=== PATIENT | female | born 1955 | race Caucasian/White ===

== ENCOUNTER → 2018-03-04 09:10 | Outpatient (CLI) | payer MEDICAID, SELFPAY ==
[2018-03-04 10:22] LABS: Absolute Lymphocyte Count 1.88 X10^3/ul (0.83-4.51); Absolute Neutrophil Count 6.1 X10^3/uL (2.0-7.7); Basophil# 0.09 X10^3/uL; Eosinophil# 0.26 X10^3/uL; Eosinophils% 2.8 % (0-5); Hematocrit 46.5 % (37-47); Hemoglobin 15.5 g/dl (12.0-15.0); Lymphocyte # 1.88 X10^3/ul (4.0); Lymphocyte % 20.4 % (19-41); Mean Corp Hgb Conc 33.3 g/gl (32-36); Mean Corpuscular Hgb 31.2 pg (27.0-32.0); Mean Corpuscular Volume 93.6 fL (81-99); Mean Platelet Vol. 10.4 fl (6.2-12.0); Monocyte# 0.85 X10^3/uL; Monocyte% 9.2 % (0-10); Neutrophil % 66.4 % (47-70); Platelet Count 292 K/mm3 (150-450); RBC Distribution Width CV 13.2 % (11.6-14.6); RBC Distribution Width SD 44.1 fl (35.1-43.9); Red Blood Count 4.97 M/mm3 (4.2-5.4); White Blood Count 9.2 K/mm3 (4.4-11.0)
[2018-03-04 10:30] LABS: POSITIVE COUNT NO; POSITIVE DIFFERENTIAL NO; POSITIVE MORPHOLOGY NO
[2018-03-04 10:39] LABS: Anion Gap 8 (5-15); BUN 12 mg/dL (7-18); BUN/Creat Ratio 18.3 RATIO (10-20); Calcium,Total 8.1 mg/dL (8.5-10.1); Chloride 107 mmol/L (98-107); Cholesterol 193 mg/dL (200); Creatinine, Serum 0.65 mg/dL (0.55-1.02); EST Glomerular Filtration Rate 97 mL/min (>60); Est Glom Filt Rate - Afr Amer 117 mL/min (>60); Glucose 108 mg/dL (74-106); High Density Lipoprotein 42 mg/dL; Potassium 3.7 mmol/L (3.5-5.1); Sodium Level 142 mmol/L (136-145); Triglycerides 132 mg/dL; Very Low Density Lipoprotein 26 mg/dL (5-40)
== END ==
PROVIDERS: Family Provider Internal Medicine; PCP Internal Medicine; Referring Provider Internal Medicine; Visit Provider Internal Medicine
DX: E78.5 Hyperlipidemia, unspecified (principal); J44.9 Chronic obstructive pulmonary disease, unspecified
CPT/HCPCS: 36415; 80048; 80061; 85025

== ENCOUNTER → 2018-03-16 07:21 | Outpatient (CLI) | payer MEDICAID, SELFPAY ==
--- NOTE | 2018-03-17 08:35 | PFT ---
INTRODUCTION: The patient is a 62-year-old female that presents for pulmonary function testing secondary to a diagnosis of COPD. Respiratory therapy reports good patient effort. Bronchodilators were used during testing. INTERPRETATION: Forced expiration spirometry demonstrates the presence of a moderately severe large airways obstructive ventilatory defect. The patient did have a significant bronchodilator response, based upon change noted in FVC. Spirograms are of good quality do not plateau indicating slow emptying of the lungs. Body plethysmography was performed and reveals an elevated RV to 155% of predicted, indicative of underlying air trapping. Diffusing capacity by single breath CO is mildly reduced at 60% of predicted. IMPRESSION: These pulmonary function studies demonstrate the presence of a partially reversible moderately severe large airways obstructive ventilatory defect with associated air trapping and reduction in diffusing capacity.
== END ==
PROVIDERS: Family Provider Internal Medicine; PCP Internal Medicine; Referring Provider Internal Medicine; Visit Provider Internal Medicine
DX: J44.9 Chronic obstructive pulmonary disease, unspecified (principal)
CPT/HCPCS: 94060; 94726; 94729

== ENCOUNTER → 2019-02-02 08:37 | Outpatient (CLI) | payer MEDICAID, SELFPAY ==
[2018-08-11 14:59] VITALS: BMI 27.6
[2019-02-02 10:42] LABS: Absolute Lymphocyte Count 1.56 X10^3/uL (0.83-4.51); Absolute Neutrophil Count 7.5 X10^3/uL (2.0-7.7); Basophil# 0.09 X10^3/uL; Basophil% 0.8 % (0-1); Eosinophil# 0.38 X10^3/uL; Eosinophils% 3.4 % (0-5); Hematocrit 47.2 % (37-47); Hemoglobin 15.4 g/dL (12.0-15.0); Lymphocyte # 1.56 X10^3/ul (4.0); Lymphocyte % 14.1 % (19-41); Mean Corp Hgb Conc 32.6 g/dL (32-36); Mean Corpuscular Hgb 30.5 pg (27.0-32.0); Mean Corpuscular Volume 93.5 fL (81-99); Mean Platelet Vol. 9.9 fl (6.2-12.0); Monocyte% 13.6 % (0-10); NRBC Flagged by Analyzer 0 % (0-5); Neutrophil # 7.49 X10^3/uL (2.7-7.7); Neutrophil % 67.8 % (47-70); Platelet Count 268 K/mm3 (150-450); RBC Distribution Width CV 13.6 % (11.6-14.6); RBC Distribution Width SD 46.6 fl (35.1-43.9); Red Blood Count 5.05 M/mm3 (4.2-5.4); White Blood Count 11.1 K/mm3 (4.4-11.0)
[2019-02-02 11:15] LABS: AST(SGOT) 20 U/L (15-37); Alanine Aminotransfer ALT/SGPT 20 U/L (13-56); Albumin, Serum 3.7 g/dL (3.2-5.0); Alkaline Phosphatase 73 U/L (45-117); Anion Gap 5 (5-15); BUN 7 mg/dL (7-18); BUN/Creat Ratio 9.5 RATIO (10-20); Calcium,Total 8.4 mg/dL (8.5-10.1); Chloride 108 mmol/L (98-107); Cholesterol 188 mg/dL (200); Creatinine, Serum 0.74 mg/dL (0.55-1.02); EST Glomerular Filtration Rate 84 mL/min (>60); Est Glom Filt Rate - Afr Amer 102 mL/min (>60); Globulin 3.7 g/dL (2.2-4.2); Glucose 103 mg/dL (74-106); High Density Lipoprotein 39 mg/dL; Potassium 3.8 mmol/L (3.5-5.1); Protein, Total 7.4 g/dL (6.4-8.2); Sodium Level 140 mmol/L (136-145); Triglycerides 158 mg/dL; Very Low Density Lipoprotein 32 mg/dL (5-40)
== END ==
PROVIDERS: Family Provider Internal Medicine; PCP Internal Medicine; Referring Provider Internal Medicine; Visit Provider Internal Medicine
DX: I10 Essential (primary) hypertension (principal); K21.9 Gastro-esophageal reflux disease without esophagitis
CPT/HCPCS: 36415; 80053; 80061; 85025

== ENCOUNTER → 2020-08-30 14:16 | Outpatient (CLI) | payer MEDICARE, SELFPAY ==
[2020-08-30 14:04] VITALS: BMI 27.3
[2020-08-30 15:09] LABS: Absolute Lymphocyte Count 2.48 X10^3/uL (0.83-4.51); Absolute Neutrophil Count 8.2 X10^3/uL (2.0-7.7); Basophil# 0.11 X10^3/uL; Basophil% 0.9 % (0-1); Eosinophil# 0.38 X10^3/uL; Eosinophils% 2.9 % (0-5); Hematocrit 45.4 % (37-47); Hemoglobin 14.5 g/dL (12.0-15.0); Lymphocyte # 2.48 X10^3/ul (0.83-4.51); Lymphocyte % 19.2 % (19-41); Mean Corp Hgb Conc 31.9 g/dL (32-36); Mean Corpuscular Hgb 30.3 pg (27.0-32.0); Mean Corpuscular Volume 94.8 fL (81-99); Mean Platelet Vol. 9.8 fl (6.2-12.0); Monocyte# 1.66 X10^3/uL; Monocyte% 12.9 % (0-10); NRBC Flagged by Analyzer 0 % (0-5); Neutrophil # 8.21 X10^3/uL (2.7-7.7); Neutrophil % 63.6 % (47-70); POSITIVE DIFFERENTIAL YES; Platelet Count 345 K/mm3 (150-450); RBC Distribution Width CV 13.2 % (11.6-14.6); RBC Distribution Width SD 46.4 fl (35.1-43.9); Red Blood Count 4.79 M/mm3 (4.2-5.4); White Blood Count 12.9 K/mm3 (4.4-11.0)
[2020-08-30 15:10] LABS: Differential Indicated SCAN CRITERIA MET
[2020-08-30 15:28] LABS: AST(SGOT) 13 U/L (15-37); Alanine Aminotransfer ALT/SGPT 18 U/L (13-56); Albumin, Serum 3.8 g/dL (3.2-5.0); Alkaline Phosphatase 71 U/L (45-117); Anion Gap 7 (5-15); BUN 15 mg/dL (7-18); BUN/Creat Ratio 21.8 RATIO (10-20); Calcium,Total 8.2 mg/dL (8.5-10.1); Chloride 106 mmol/L (98-107); Cholesterol 204 mg/dL (200); Creatinine, Serum 0.69 mg/dL (0.55-1.02); EST Glomerular Filtration Rate 91 mL/min (>60); Est Glom Filt Rate - Afr Amer 110 mL/min (>60); Globulin 3.7 g/dL (2.2-4.2); Glucose 100 mg/dL (74-106); High Density Lipoprotein 42 mg/dL; Potassium 4.1 mmol/L (3.5-5.1); Protein, Total 7.5 g/dL (6.4-8.2); Sodium Level 141 mmol/L (136-145); Triglycerides 154 mg/dL; Very Low Density Lipoprotein 31 mg/dL (5-40)
[2020-08-30 15:41] LABS: Differential Comment SCANNED
[2020-09-02 13:23] LABS: Pathologist Review Reviewed
== END ==
PROVIDERS: PCP Internal Medicine; Referring Provider Internal Medicine; Visit Provider Internal Medicine
DX: I10 Essential (primary) hypertension (principal); J45.909 Unspecified asthma, uncomplicated
CPT/HCPCS: 36415; 80053; 80061; 85025

== ENCOUNTER 2021-02-27 17:31 | Observation (INO) | payer MEDICARE, SELFPAY ==
[2021-02-27] VITALS (14 sets, daily range): BP systolic 145–202; BP diastolic 70–106; PULSE 100–132; RESP 17–29; TEMP 36.6–37.1; O2SAT 85–98; BMI 30.2; BMI 29.6
--- NOTE | 2021-02-27 17:51 | EKG12_ITS ---
Test Reason : SOB Blood Pressure : / mmHG Vent. Rate : 101 BPM Atrial Rate : 101 BPM P-R Int : 148 ms QRS Dur : 082 ms QT Int : 344 ms P-R-T Axes : 069 -33 057 degrees QTc Int : 446 ms Sinus tachycardia Left axis deviation Septal infarct , age undetermined Abnormal ECG Confirmed by FARHEEN LAKE, IAM ([id number]), publications editor TAMIKO BELTRAN ([id number]) on 03/03/2021 10:22:16 A M Referred By: ALEKSANDER Confirmed By:JOE ZHONG MD
--- NOTE | 2021-02-27 17:53 | EDS_ITS ---
HPI History of Present Illness Chief Complaint: Shortness of Breath Informant: patient Narrative Narrative: Patient presents with dyspnea. Its really built up just over about the last 24 hours. She is wheezing a lot. She is her albuterol once or twice. It helps just for a short period of time but does not resolve it. She is coughing and bringing up occasional white or clear sputum. No hemoptysis. No chest pain. No leg pain or swelling. No fevers or myalgias. She is already had her Covid vaccine. She does have a history of COPD. She still smokes and was counseled to quit. Although the albuterol helped a little bit nothing really makes her symptoms worse. [facility] Medical History Arthritis Asthma COPD (chronic obstructive pulmonary disease) Depression History of wrist fracture Preventative health correction Medications ibuprofen 200 mg tablet 200 mg PO Q6H PRN 02/09/19 [History Last Taken Unknown] amlodipine 5 mg tablet 5 mg PO DAILY #90 tab 10/11/20 [Rx Last Taken Unknown] albuterol sulfate 90 mcg/actuation aerosol inhaler 2 puff INHALATION Q6H PRN #8.5 g 02/07/21 [Rx Last Taken Unknown] citalopram 40 mg tablet 40 mg PO QDAY #90 tab 02/07/21 [Rx Last Taken Unknown] Allergy/AdvReac Type Severity Reaction Status Date / Time No Known Allergies Allergy Verified 02/27/21 17:32 Family History Father COPD (chronic obstructive pulmonary disease) Mother COPD (chronic obstructive pulmonary disease) Heart disease Surgical History cyst removed off knee History of tonsillectomy spur removal in heel Social History Smoking Status: Current every day smoker tobacco type: cigarettes Tobacco: How many years used: 40 alcohol intake: never substance use type: does not use what type of physical activity do you participate in: none ROS ROS ED Constitutional Constitutional ED: Denies chills or fever(s) Eyes Eyes: Denies blurry vision ENT ENT ED: Denies rhinorrhea or sore throat Cardiovascular Cardiovascular: Denies chest pain, orthopnea or palpitations Respiratory/Chest Respiratory/Chest: Reports cough and dyspnea; Denies orthopnea or sputum Gastrointestinal Gastrointestinal: Denies abdominal pain, nausea or vomiting Genitourinary Genitourinary ED: Denies dysuria Musculoskeletal Musculoskeletal: Denies arthralgias or myalgias Integumentary Denies rash Neurologic Neurologic: Denies headache(s) Psychiatric Psychiatric: Denies depression Endocrine Endocrinology: Denies polydipsia or polyuria Hematologic/Lymphatic Hematologic/Lymphatic: Denies easy bleeding or easy bruising Allergic/Immunologic Allergic/Immunologic ED: Denies urticaria EXAM Physical Exam Const Vital Signs: 02/27/21 17:32 02/27/21 17:36 02/27/21 17:47 Temperature 97.9 F Temperature Source Temporal Pulse Rate 132 H 109 H Respiratory Rate 29 H 24 H Respiratory Effort Short of Breath Respiratory Depth Respiratory Pattern Tachypnea Blood Pressure 202/106 H Blood Pressure Mean 138 Pulse Ox 85 98 Oxygen Delivery Method Room Air Nasal Cannula Nasal Cannula Oxygen Flow Rate (L/min) 2 2 02/27/21 18:22 02/27/21 18:39 02/27/21 19:03 Temperature Temperature Source Pulse Rate 106 H 101 H 105 H Respiratory Rate 24 H 22 H 19 H Respiratory Effort Short of Breath Labored Accessory Muscle Use Respiratory Depth Shallow Respiratory Pattern Tachypnea Blood Pressure 195/92 H 172/90 H Blood Pressure Mean 126 117 Pulse Ox 97 93 94 Oxygen Delivery Method Nasal Cannula Nasal Cannula Room Air Oxygen Flow Rate (L/min) 1 2 02/27/21 20:00 02/27/21 20:05 Temperature Temperature Source Pulse Rate 101 H Respiratory Rate 20 H Respiratory Effort Respiratory Depth Respiratory Pattern Blood Pressure 179/89 H Blood Pressure Mean 119 Pulse Ox 86 93 Oxygen Delivery Method Room Air Nasal Cannula Oxygen Flow Rate (L/min) 3 Patient is having some increased work of breathing. But she is wide awake alert carrying on a good conversation. Positive well nourished and well developed General Appearance ED: well developed and NAD HEENT Reports moist mucous membranes atraumatic; Negative for tenderness Eyes General Eye ED: Negative for pale conjunctiva or scleral icterus Neck no meningeal signs and no JVD Resp No normal respiratory effort and No clear to auscultation bilaterally Resp Narrative: Mild increased respiratory effort. Poor air motion with diffuse expiratory wheezing. No rhonchi or rales. No pain with a deep breath. Effort and Inspection: Negative for pain with movement Auscultation: wheezes and diminished lung sounds; Negative for rales or rhonchi Cardio regular rhythm Rate: tachycardic GI non-tender Palpation: soft Back/Spine no CVA tenderness and normal to inspection Extremity normal to inspection General Extremety ED: Negative for edema or tenderness General Extremity: Negative for edema Neuro oriented x3 Sensorium / Orientation: alert Skin Rashes: no rashes MDM MDM MDM Narrative Medical decision making narrative: Patient's blood work showed nonspecific elevation of her white count. Hemoglobin is elevated possibly due to her chronic COPD and smoking. Electrolytes are unremarkable. Chest x-ray showed no acute process. Patient did sound better after treatment. Her wheezing was reduced but still present. Her oxygen saturations were about 94 to 95% on 2 L. My plan was to walk her. We turned off her oxygen for a few minutes. However she had 87% with a good waveform just sitting in bed with the oxygen off. She does not have oxygen at home. I am sure she will drop more with ambulation. For this reason we are going to admit her with her COPD exacerbation and respiratory failure due to hypoxia. Lab Data Attestation: I reviewed the patient's lab results. Labs: Laboratory Results - last 24 hr 02/27/21 02/27/21 17:35 17:35 WBC 13.8 H RBC 5.02 Hgb 15.3 H Hct 46.3 MCV 92.2 MCH 30.5 MCHC 33.0 RDW Std Deviation 45.9 H RDW Coeff of Bigg 13.5 Plt Count 341 MPV 9.5 Immature Gran % (Auto) 0.400 Neut % (Auto) 52.9 Lymph % (Auto) 28.5 [place] % (Auto) 12.9 H Eos % (Auto) 4.3 Baso % (Auto) 1.0 Absolute Neuts (auto) 7.3 Absolute Lymphs (auto) 3.93 Nucleated RBC % 0 Differential Comment Sodium 140 Potassium 3.6 Chloride 104 Carbon Dioxide 27.0 Anion Gap 9 BUN 14 Creatinine 0.70 Estim Creat Clear Calc 55.39 Est GFR (MDRD) Af Amer 107 Est GFR (MDRD) Non-Af 89 BUN/Creatinine Ratio 20.0 Glucose 109 H Calcium 8.6 Radiography Diagnostic Testing: Clinical Impression(s) from Imaging Studies Chest X-Ray 11/04/21 18:21 IMPRESSION: No acute radiographic abnormalities. Electronically Signed: Sonido Rivas MD at 18:59 EDT Tel , Service support , EKG Initial EKG: Comments: EKG done for dyspnea read by me shows sinus rhythm with tachycardic rate at 101. No ventricular ectopy. There is some baseline varia tion. However, no acute ST elevation or depression. MA interval, QRS duration and QTc are normal. Discharge Plan Triage Chief Complaint: Shortness of Breath ED Provider: Joe Snyder Dx/Rx/DC Orders Clinical Impression: COPD (chronic obstructive pulmonary disease), Acute respiratory failure with hypoxia Primary Care Provider: Kajal Ny Disposition Disposition: Acute Care Hospital [facility]
[2021-02-27] MEDS: MethylPREDNISolone 125 MG/2 ML Vial IV (18:01)
[2021-02-27 18:10] LABS: Absolute Lymphocyte Count 3.93 X10^3/uL (0.83-4.51); Absolute Neutrophil Count 7.3 X10^3/uL (2.0-7.7); Basophil# 0.14 X10^3/uL; Eosinophil# 0.59 X10^3/uL; Eosinophils% 4.3 % (0-5); Hematocrit 46.3 % (37-47); Hemoglobin 15.3 g/dL (12.0-15.0); Lymphocyte # 3.93 X10^3/ul (0.83-4.51); Lymphocyte % 28.5 % (19-41); Mean Corpuscular Hgb 30.5 pg (27.0-32.0); Mean Corpuscular Volume 92.2 fL (81-99); Mean Platelet Vol. 9.5 fl (6.2-12.0); Monocyte# 1.77 X10^3/uL; Monocyte% 12.9 % (0-10); NRBC Flagged by Analyzer 0 % (0-5); Neutrophil # 7.29 X10^3/uL (2.7-7.7); Neutrophil % 52.9 % (47-70); POSITIVE DIFFERENTIAL YES; Platelet Count 341 K/mm3 (150-450); RBC Distribution Width CV 13.5 % (11.6-14.6); RBC Distribution Width SD 45.9 fl (35.1-43.9); Red Blood Count 5.02 M/mm3 (4.2-5.4); White Blood Count 13.8 K/mm3 (4.4-11.0)
[2021-02-27 18:18] LABS: Differential Indicated SCAN CRITERIA MET
--- NOTE | 2021-02-27 18:21 | RAD_ITS ---
INDICATION: cough EXAMINATION/TECHNIQUE: X-RAY - XR Chest 1 View COMPARISON: 02/08/2013. FINDINGS: The lungs are clear. Tortuous and calcified thoracic aorta. The heart is not enlarged. No pleural effusion or pneumothorax. Degenerative changes of the thoracic spine and shoulders. RAD/Chest 1 View (Portable) IMPRESSION: No acute radiographic abnormalities. Electronically Signed: Sonido Rivas MD at 18:59 EDT Tel , Service support ,
[2021-02-27 18:22] LABS: Anion Gap 9 (5-15); BUN 14 mg/dL (7-18); Calcium,Total 8.6 mg/dL (8.5-10.1); Chloride 104 mmol/L (98-107); EST Glomerular Filtration Rate 89 mL/min (>60); Est Glom Filt Rate - Afr Amer 107 mL/min (>60); Estimated Creatinine Clearance 55.39 ml/min; Glucose 109 mg/dL (74-106); Potassium 3.6 mmol/L (3.5-5.1); Sodium Level 140 mmol/L (136-145)
[2021-02-27] MEDS: Ipratropium/Albuterol Sulfate 3 ML AMPUL.NEB INHALATION ×3 (18:22→23:41)
[2021-02-27] MEDS: Albuterol 2.5 MG/3 ML VIAL.NEB. INHALATION (18:22)
--- NOTE | 2021-02-27 20:39 | HP.PCM.HOS_ITS ---
HPI - General General Date of Admission: 02/27/21 Date of Service: 02/27/21 Chief Complaint: shortness of breath HPI Narrative GERI PACHECO, is a 65 F who presents shortness of breath. Began around 530 today when she went to the gas station and became acutely short of breath. Presented to the emergency room and had audible wheezing. Received bronchodilators as well as monitoring 5 mg of methylprednisolone. Currently is feeling better. Patient was ambulated and dropped to 87% on room air and when I went to the room in turn of the oxygen she down to 88% on room air. Patient is not on home oxygen. Patient is never felt short of breath like this before. Patient being admitted for acute exacerbation of COPD and hypoxia. [facility] Medical History Arthritis Asthma COPD (chronic obstructive pulmonary disease) Depression History of wrist fracture Preventative health [facility] Medications ibuprofen 200 mg tablet 200 mg PO Q6H PRN 02/09/19 [History Last Taken Unknown] amlodipine 5 mg tablet 5 mg PO DAILY #90 tab 10/11/20 [Rx Last Taken Unknown] albuterol sulfate 90 mcg/actuation aerosol inhaler 2 puff INHALATION Q6H PRN #8.5 g 02/07/21 [Rx Last Taken Unknown] citalopram 40 mg tablet 40 mg PO QDAY #90 tab 02/07/21 [Rx Last Taken Unknown] fluticasone propionate 44 mcg/actuation HFA aerosol inhaler 1 puff INHALATION BID #10.6 g 02/07/21 [Rx Last Taken Unknown] Allergy/AdvReac Type Severity Reaction Status Date / Time No Known Allergies Allergy Verified 02/27/21 17:32 Family History Father COPD (chronic obstructive pulmonary disease) Mother COPD (chronic obstructive pulmonary disease) Heart disease Surgical History cyst removed off knee History of tonsillectomy spur removal in heel Social History Smoking Status: Current every day smoker tobacco type: cigarettes Tobacco: How many years used: 40 alcohol intake: never substance use type: does not use what type of physical activity do you participate in: none ROS ROS Narrative All review of systems were negative except as mentioned above in the history of present illness and the other review of systems. Vital Signs Vital Signs Vital Signs: 02/27/21 17:32 02/27/21 17:36 02/27/21 17:47 Temperature 36.6 C Temperature Source Temporal Pulse Rate 132 H 109 H Respiratory Rate 29 H 24 H Respiratory Effort Short of Breath Respiratory Depth Respiratory Pattern Tachypnea Blood Pressure 202/106 H Blood Pressure Mean 138 Pulse Ox 85 98 Oxygen Delivery Method Room Air Nasal Cannula Nasal Cannula Oxygen Flow Rate (L/min) 2 2 02/27/21 18:22 02/27/21 18:39 02/27/21 19:03 Temperature Temperature Source Pulse Rate 106 H 101 H 105 H Respiratory Rate 24 H 22 H 19 H Respiratory Effort Short of Breath Labored Accessory Muscle Use Respiratory Depth Shallow Respiratory Pattern Tachypnea Blood Pressure 195/92 H 172/90 H Blood Pressure Mean 126 117 Pulse Ox 97 93 94 Oxygen Delivery Method Nasal Cannula Nasal Cannula Room Air Oxygen Flow Rate (L/min) 1 2 02/27/21 20:00 02/27/21 20:05 Temperature Temperature Source Pulse Rate 101 H Respiratory Rate 20 H Respiratory Effort Respiratory Depth Respiratory Pattern Blood Pressure 179/89 H Blood Pressure Mean 119 Pulse Ox 86 93 Oxygen Delivery Method Room Air Nasal Cannula Oxygen Flow Rate (L/min) 3 Weight Weight: 63.4 kg Body Mass Index (BMI) 30.2 Physical Exam Const alert General Appearance: cooperative HEENT normocephalic Resp Resp Narrative: Diminished breath sounds. Faint wheezing heard throughout. Cardio regular rate, regular rhythm, S1 normal heart sound and S2 normal heart sound GI normal to inspection, nondistended, normoactive bowel sounds, soft to palpation, non-tender and non-distended Extremity normal to inspection Results Lab / Micro Data Attestation: I reviewed the patient's lab results. Result Diagrams: 02/27/21 17:35 02/27/21 17:35 Labs: Laboratory Results - last 24 hr 02/27/21 17:35: WBC 13.8 H, RBC 5.02, Hgb 15.3 H, Hct 46.3, MCV 92.2, MCH 30.5, MCHC 33.0, RDW Std Deviation 45.9 H, RDW Coeff of Bigg 13.5, Plt Count 341, MPV 9.5, Immature Gran % (Auto) 0.400, Neut % (Auto) 52.9, Lymph % (Auto) 28.5, [place] % (Auto) 12.9 H, Eos % (Auto) 4.3, Baso % (Auto) 1.0, Absolute Neuts (auto) 7.3, Absolute Lymphs (auto) 3.93, Nucleated RBC % 0, Differential Comment 02/27/21 17:35: Sodium 140, Potassium 3.6, Chloride 104, Carbon Dioxide 27.0, Anion Gap 9, BUN 14, Creatinine 0.70, Estim Creat Clear Calc 55.39, Est GFR (MDRD) Af Amer 107, Est GFR (MDRD) Non-Af 89, BUN/Creatinine Ratio 20.0, Glucose 109 H, Calcium 8.6 EKG Initial EKG: Attestation: I personally reviewed and interpreted this EKG as follows: Prior EKG tracings: available for review EKG Rhythm Intrepretation: Sinus Tachycardia Radiology Impression Chest X-Ray 02/27/21 18:21 IMPRESSION: No acute radiographic abnormalities. Electronically Signed: Sonido Rivas MD at 18:59 EDT Tel , Service support , Assessment & Plan Assessment/Plan (1) COPD with acute exacerbation: (2) Hypertensive urgency: (3) Acute respiratory failure with hypoxia: PLAN: 1. Acute exacerbation of COPD * Patient peers very well at this time. * Already received bronchodilators as well as 125 milligrams of methylprednisolone * Will continue with 40 mg prednisone as well as bronchodilators here. * Anticipate uncomplicated hospitalization 2. Hypertensive urgency * May be related with her acute illness * Already on amlodipine 5 mg daily * We will add lisinopril 10 mg daily and give her her first dose of lisinopril tonight as well as give her a dose of amlodipine tonight. * May need further adjustments based on her overall blood pressure 3. Acute hypoxic respiratory failure * Suspected that this could certainly be chronic. Patient appears well with a pulse ox of 88% on room air. * Will check an ambulatory pulse ox on the fifth and if patient is 88% or less that she will need home oxygen. 4. VTE prophylaxis: Low risk given observation status. Not indicated. Charges/Coding Visit Charges OBSV E&M: 25955 Initial observation care L2
--- NOTE | 2021-02-27 21:33 | PCS.PANDOC ---
PANDEMIC DOCUMENTATION INITIATED: Date: 12/09/2020 Time: 190
[2021-02-27] MEDS: amLODIPine 5 MG Tablet PO (21:36)
[2021-02-27] MEDS: Lisinopril 10 MG Tablet PO (21:37)
[2021-02-28 05:20] VITALS: BP 143/79; PULSE 98; RESP 20; TEMP 36.3; O2SAT 95
[2021-02-28 05:49] VITALS: PULSE 102; RESP 20
[2021-02-28] MEDS: Ipratropium/Albuterol Sulfate 3 ML AMPUL.NEB INHALATION ×3 (05:49→15:46)
--- NOTE | 2021-02-28 07:09 | PCM.PN.HOSP ---
Subjective Subjective Patient is a 65-year-old lady admitted with progressive shortness of breath and wheezing as well as cough. An assessment of COPD with acute exacerbation made admitted to regular nursing floor for further management Objective Data Objective Data Vital Signs: Vital Signs Temp Pulse Resp BP Pulse Ox 97.3 F L 102 H 20 H 143/79 H 95 02/28/21 05:20 02/28/21 05:49 02/28/21 05:49 02/28/21 05:20 02/28/21 05:20 Oxygen Flow Rate (L/min) 3 Oxygen Delivery Method Nasal Cannula Weight: 62.142 kg Body Mass Index (BMI) 29.6 Intake & Output: Intake and Output for Last 24 Hours 02/26/21 02/27/21 02/28/21 23:59 23:59 23:59 Intake Total 50 / 50 Balance 50 / 50 Lab / Micro Data Result Diagrams: 02/27/21 17:35 02/27/21 17:35 Labs: Laboratory Results - last 24 hr 02/27/21 17:35: WBC 13.8 H, RBC 5.02, Hgb 15.3 H, Hct 46.3, MCV 92.2, MCH 30.5, MCHC 33.0, RDW Std Deviation 45.9 H, RDW Coeff of Bigg 13.5, Plt Count 341, MPV 9.5, Immature Gran % (Auto) 0.400, Neut % (Auto) 52.9, Lymph % (Auto) 28.5, [place] % (Auto) 12.9 H, Eos % (Auto) 4.3, Baso % (Auto) 1.0, Absolute Neuts (auto) 7.3, Absolute Lymphs (auto) 3.93, Nucleated RBC % 0, Differential Comment , Diff Path Review August02/27/21 17:35: Sodium 140, Potassium 3.6, Chloride 104, Carbon Dioxide 27.0, Anion Gap 9, BUN 14, Creatinine 0.70, Estim Creat Clear Calc 55.39, Est GFR (MDRD) Af Amer 107, Est GFR (MDRD) Non-Af 89, BUN/Creatinine Ratio 20.0, Glucose 109 H, Calcium 8.6 Radiography Diagnostic Testing: Radiology Impression Chest X-Ray 02/27/21 18:21 IMPRESSION: No acute radiographic abnormalities. Electronically Signed: Sonido Rivas MD at 18:59 EDT Tel , Service support , Physical Exam Narrative GENERAL: cooperative HEENT: Atraumatic; EYES; Anicteric, Normal Conjunctiva NECK; supple, normal thyroid, RESPIRATORY: Diminished to auscultation CARDIOVASCULAR: Regular S1 S2, GI: soft, normoactive bowel sounds, : No Renal angle tenderness; EXTREMITIES: No edema, no clubbing, MUSCULOSKELETAL: no muscle waisting NEURO: Awake; no lateralizing signs. SKIN: No Rash PSYCH; Flat affect Assessment & Plan Assessment/Plan (1) COPD with acute exacerbation: (2) Hypertensive urgency: (3) Acute respiratory failure with hypoxia: PLAN: Patient is a 65-year-old lady admitted with progressive shortness of breath and wheezing as well as cough. An assessment of COPD with acute exacerbation made admitted to regular nursing floor for further management 1. Acute hypoxic respiratory insufficiency secondary to COPD with acute exacerbation ?Managed with bronchodilator treatment in addition to systemic steroid 2. Acute hypertensive urgency ?Patient blood pressure was markedly elevated with blood pressure of 202/106 on admission patient blood pressure has since improved following adjustment in her antihypertensive regimen 3. Depression ?Patient on SSRI 4. Overweight with BMI of 29.6 ?Weight loss advised 5. DVT prophylaxis ?Lovenox Charges/Coding Visit Charges OBSV E&M: 18115 Subsequent observation care L3
--- NOTE | 2021-02-28 09:30 | CASEMGMT ---
Addendum entered by Karrie Nuñez 02/28/21 10:09: Pt states she smokes a pack of cigarettes per day. Discussed safety regarding not smoking with O2. Pt verbalizes understanding. Original Note: PARIS STALLWORTH Assessment: Face to Face with pt for initial transition planning/care coordination assessment. [place] STALLWORTH introduced self and role at [facility], pt voices understanding and consents to assessment. Pt is A/O x4 and answers all questions appropriately at this time. Pt sitting up in bed with O2 on in no distress. Care providers, pharmacy, and demographics verified/updated. Admitting Dx: COPD exac PCP:Yanely Specialists:Pt denies. [facility]erred [facility]acy: [facility] Insurance: [facility] Prescription Benefit: no LW/HPOA: Pt denies having a LW/DPOA and denies need for info regarding AD. LNOK: Jennifer Ramirez, sister; Jeni Richter, sister Living Arrangements: Pt lives alone in a mobile home with 4 steps to enter with a rail. Pt reports she is I in ADL's and denies concerns at home. Transportation: Pt drives self and denies concerns with transportation. DME/HHC/SNF: Pt denies having any DME, hx of HHC or SNF stays. Pt states no concerns with going home at time of dc. Discussed HHC, pt states she is not homebound and has no difficulties with getting out and about. Pt states no further concerns/needs. Provided pt with a local in network list of DME companies should pt need O2, pt chose [employer]. CM to follow. Advised pt to ask CM if any further question/concerns/needs arise, voices understanding. Pt Goal: Home Plan: Home with O2 if needed.
[2021-02-28 10:56] VITALS: BP 127/65; PULSE 107; RESP 18; TEMP 36.6; O2SAT 91
[2021-02-28] MEDS: predniSONE 20 MG Tablet 40 MG PO (10:57)
[2021-02-28] MEDS: Lisinopril 10 MG Tablet PO (10:58)
[2021-02-28] MEDS: amLODIPine 5 MG Tablet PO (10:58)
[2021-02-28] MEDS: Citalopram 40 MG TABLET PO (10:58)
[2021-02-28] MEDS: Enoxaparin 40 MG/0.4 ML Syringe SC (11:00)
[2021-02-28 11:15] VITALS: O2SAT 87; O2SAT 91; O2SAT 95
--- NOTE | 2021-02-28 11:37 | DS.PCM_ITS ---
Providers Date of Admission: 02/27/21 Primary Care Physician: Dr. Kajal Ny MD Reason For Visit: COPD EXACERBATION Diagnosis Discharge Diagnosis (1) COPD with acute exacerbation: Status: Chronic Code(s): J44.1 - Chronic obstructive pulmonary disease with (acute) exacerbation (2) Hypertensive urgency: Status: Acute Code(s): I16.0 - Hypertensive urgency (3) Acute respiratory failure with hypoxia: Status: Acute Code(s): J96.01 - Acute respiratory failure with hypoxia Medications at Discharge Home Medications ibuprofen 200 mg tablet 200 mg PO Q6H PRN 02/09/19 albuterol sulfate 90 mcg/actuation aerosol inhaler 2 puff INHALATION Q6H PRN #8.5 g 02/07/21 citalopram 40 mg tablet 40 mg PO QDAY #90 tab 02/07/21 amlodipine 10 mg PO DAILY #60 tab 02/28/21 azithromycin [Zithromax] 500 mg PO DAILY 3 Days #3 tab 02/28/21 budesonide-formoterol [Symbicort] 2 puff INHALATION BID #10.2 g 02/28/21 guaifenesin [Mucinex] 1,200 mg PO Q12H #14 tab 02/28/21 lisinopril 10 mg PO DAILY #60 tab 02/28/21 prednisone 40 mg PO DAILY #10 tab 02/28/21 Hospital Course Summary of Care Provided Minutes Spent on Discharge: 35 Hospital Course: Patient is a 65-year-old lady admitted with progressive shortness of breath and wheezing as well as cough. An assessment of COPD with acute exacerbation made admitted to regular nursing floor for further management 1. Acute hypoxic respiratory insufficiency secondary to COPD with acute ex acerbation ?Managed with bronchodilator treatment in addition to systemic steroid -Patient was assessed for home oxygen prior to discharge. She did qualify she would need portability since she is active both at home as well as in the community 2. Acute hypertensive urgency ?Patient blood pressure was markedly elevated with blood pressure of 202/106 on admission patient blood pressure has since improved following adjustment in her antihypertensive regimen 3. Depression ?Patient on SSRI 4. Overweight with BMI of 29.6 ?Weight loss advised 5. DVT prophylaxis ?Lovenox Physical Exam Narrative GENERAL: cooperative HEENT: Atraumatic; EYES; Anicteric, Normal Conjunctiva NECK; supple, normal thyroid, RESPIRATORY: Diminished to auscultation CARDIOVASCULAR: Regular S1 S2, GI: soft, normoactive bowel sounds, : No Renal angle tenderness; EXTREMITIES: No edema, no clubbing, MUSCULOSKELETAL: no muscle waisting NEURO: Awake; no lateralizing signs. SKIN: No Rash PSYCH; Flat affect Weight / BMI Weight Weight: 62.142 kg Body Mass Index (BMI) 29.6 ABG / Lab / Microbiology Data Result Diagrams: 02/27/21 17:35 02/27/21 17:35 Laboratory: Laboratory Results - last 24 hr 02/27/21 17:35: WBC 13.8 H, RBC 5.02, Hgb 15.3 H, Hct 46.3, MCV 92.2, MCH 30.5, MCHC 33.0, RDW Std Deviation 45.9 H, RDW Coeff of Bigg 13.5, Plt Count 341, MPV 9.5, Immature Gran % (Auto) 0.400, Neut % (Auto) 52.9, Lymph % (Auto) 28.5, [place] % (Auto) 12.9 H, Eos % (Auto) 4.3, Baso % (Auto) 1.0, Absolute Neuts (auto) 7.3, Absolute Lymphs (auto) 3.93, Nucleated RBC % 0, Differential Comment , Diff Path Review August02/27/21 17:35: Sodium 140, Potassium 3.6, Chloride 104, Carbon Dioxide 27.0, Anion Gap 9, BUN 14, Creatinine 0.70, Estim Creat Clear Calc 55.39, Est GFR (MDRD) Af Amer 107, Est GFR (MDRD) Non-Af 89, BUN/Creatinine Ratio 20.0, Glucose 109 H, Calcium 8.6 Microbiology: Microbiology 02/28/21 08:40 Nasal Secretion SARS-CoV-2 Antigen (Rapid) - Final Radiography Diagnostic Testing: Radiology Impression Chest X-Ray 02/27/21 18:21 IMPRESSION: No acute radiographic abnormalities. Electronically Signed: Sonido Rivas MD at 18:59 EDT Tel , Service support , D/C Instructions Discharge Diet: No restrictions Discharge Activity: Return to Normal Activity Call your doctor if you observe: Fever of 101 or Higher, Shortness of breath, Fainting spells and Chest pain Meaningful Use Info Meaningful Use Diagnoses (Choose all that apply): None applicable Discharge Plan Admission Admit Date/Time: 02/27/21 20:35 Primary Reason for Your Visit: COPD Attending Provider: Anil Blackwell Primary Care Provider: Kajal Ny Discharge Orders/Prescriptions Prescriptions: New budesonide-formoterol [Symbicort] 80-4.5 mcg/actuation HFA aerosol inhaler 2 puff inhalation BID Qty: 10.2 RF: 0 prednisone 20 mg tablet 40 mg PO DAILY Qty: 10 RF: 0 azithromycin [Zithromax] 500 mg tablet 500 mg PO DAILY 3 Days Qty: 3 RF: 0 Mucinex 1,200 mg tablet extended release 12hr 1,200 mg PO Q12H Qty: 14 RF: 0 lisinopril 10 mg Tablet 10 mg PO DAILY Qty: 60 RF: 0 Continued ibuprofen 200 mg tablet 200 mg PO Q6H PRN (Reason: Pain) RF: 0 Ventolin HFA 90 mcg/actuation HFA aerosol inhaler 2 puff INHALATION Q6H PRN (Reason: shortness of breath or wheezing) Qty: 8.5 RF: 2 citalopram 40 mg tablet 40 mg PO QDAY Qty: 90 RF: 3 Changed amlodipine 5 mg tablet 10 mg PO DAILY Qty: 60 RF: 3 Referrals / Follow Up: Kajal Ny MD [Primary Care Provider] - In 1 Week Disposition Disposition (needs filled in before D/C Order can be placed): Home, Self Care Charges/Coding Visit Charges OBSV E&M: 53611 Observation care discharge
--- NOTE | 2021-02-28 11:55 | CASEMGMT ---
Pt screened with [facility] Palliative Care Screening Tool due to COPD exac, pt met criteria. Pt with dc in. TC to Palliative to Isa to make aware of criteria met but pt dc'ing so no official order. They will follow up as outpt. Face sheet and screening tool faxed at this time.
[2021-02-28 13:30] VITALS: BP 134/68; PULSE 109; RESP 18; TEMP 37.1; O2SAT 93
[2021-02-28 13:37] LABS: Pathologist Review Reviewed
--- NOTE | 2021-02-28 13:41 | CASEMGMT ---
Addendum entered by Karrie Nuñez 02/28/21 14:50: RN CM in to pt room. Pt now requires the use of assistive device, discussed HHC again. Pt states for a little while she would not be able to get out and about due to her unsteadiness. She is agreeable to a SN coming in for O2 education and disease education. Patient was provided a list of HHC providers including quality and resource use data and consistent with the patient?s preferred geographic region, medical needs, and insurance network. The patient?s preferred provider is [facility]. TC to Gregoria to make aware of referral. Left voicemail. Asked for SN to eval for PT d/t new walker. Will await acceptance. Original Note: Pt qualifies for home O2, faxed referral to Maggie. TC to Simeon, she is aware of referral and that tank will be taken from stock. Pt also is in need of a FWW, [employer] is out of stock. TC to [facility], spoke with Anita they will deliver FWW to hospital. Pt agreeable to using [facility].
[2021-02-28 15:43] VITALS: PULSE 98; RESP 22
== END 2021-02-28 16:35 | disposition home or self-care (01) ==
LOC: ED 20:30 → MS3 20:41
PROVIDERS: Emergency Provider Emergency Medicine; PCP Internal Medicine; Visit Provider Internal Medicine
DX: J44.1 Chronic obstructive pulmonary disease with (acute) exacerbation (principal); I16.0 Hypertensive urgency; F17.210 Nicotine dependence, cigarettes, uncomplicated; M19.90 Unspecified osteoarthritis, unspecified site; F32.A Depression, unspecified; R94.31 Abnormal electrocardiogram [ECG] [EKG]; E66.3 Overweight; Z68.29 Body mass index [BMI] 29.0-29.9, adult; J96.01 Acute respiratory failure with hypoxia; Z79.899 Other long term (current) drug therapy; Z79.51 Long term (current) use of inhaled steroids
CPT/HCPCS: 71045; 80048; 85025; 87426; 93005; 94640; 96372; 96374; 97162; 99218; 99251; 99285; 99406; A4216; G0378; G0463

== ENCOUNTER → 2021-08-15 | Outpatient (CLI) | payer MEDICARE, SELFPAY ==
[2021-08-15 17:15] LABS: Absolute Lymphocyte Count 2.43 X10^3/uL (0.83-4.51); Absolute Neutrophil Count 7.1 X10^3/uL (2.0-7.7); Basophil# 0.12 X10^3/uL; Eosinophil# 0.39 X10^3/uL; Eosinophils% 3.4 % (0-5); Hematocrit 43.7 % (37-47); Hemoglobin 14.1 g/dL (12.0-15.0); Lymphocyte # 2.43 X10^3/ul (0.83-4.51); Lymphocyte % 21.1 % (19-41); Mean Corp Hgb Conc 32.3 g/dL (32-36); Mean Corpuscular Hgb 30.6 pg (27.0-32.0); Mean Corpuscular Volume 94.8 fL (81-99); Mean Platelet Vol. 9.8 fl (6.2-12.0); Monocyte# 1.39 X10^3/uL; Monocyte% 12.1 % (0-10); NRBC Flagged by Analyzer 0 % (0-5); Neutrophil # 7.13 X10^3/uL (2.7-7.7); Platelet Count 332 K/mm3 (150-450); RBC Distribution Width CV 13.4 % (11.6-14.6); Red Blood Count 4.61 M/mm3 (4.2-5.4); White Blood Count 11.5 K/mm3 (4.4-11.0)
[2021-08-15 17:23] LABS: AST(SGOT) 16 U/L (15-37); Alanine Aminotransfer ALT/SGPT 23 U/L (13-56); Albumin, Serum 3.7 g/dL (3.2-5.0); Alkaline Phosphatase 65 U/L (45-117); Anion Gap 4 (5-15); BUN 13 mg/dL (7-18); BUN/Creat Ratio 17.1 RATIO (10-20); Calcium,Total 8.7 mg/dL (8.5-10.1); Chloride 107 mmol/L (98-107); Cholesterol 200 mg/dL (200); Creatinine, Serum 0.76 mg/dL (0.55-1.02); EST Glomerular Filtration Rate 80 mL/min (>60); Est Glom Filt Rate - Afr Amer 97 mL/min (>60); Globulin 3.8 g/dL (2.2-4.2); Glucose 100 mg/dL (74-106); High Density Lipoprotein 42 mg/dL; Potassium 4.3 mmol/L (3.5-5.1); Protein, Total 7.5 g/dL (6.4-8.2); Sodium Level 139 mmol/L (136-145); Triglycerides 136 mg/dL; Very Low Density Lipoprotein 27 mg/dL (5-40)
== END | disposition home or self-care (01) ==
LOC: BIMLAB 14:56
PROVIDERS: PCP Internal Medicine; Referring Provider Internal Medicine; Visit Provider Internal Medicine
DX: I10 Essential (primary) hypertension (principal); J45.909 Unspecified asthma, uncomplicated
CPT/HCPCS: 36415; 80053; 80061; 85025

== ENCOUNTER 2022-04-13 17:57 | Observation (INO) | payer MEDICARE, SELFPAY ==
[2022-04-13 18:00] VITALS: BP 158/63; PULSE 107; RESP 18; TEMP 36.9; O2SAT 98; BMI 28.1
[2022-04-13 18:06] VITALS: TEMP 36.9
--- NOTE | 2022-04-13 19:01 | CT_ITS ---
INDICATION: Trauma EXAMINATION: CT BRAIN - CT Head or Brain W/O Contrast Injection TECHNIQUE: Multiple axial images were obtained of the head without intravenous contrast. A radiation dose optimization technique was used for this scan. IV Contrast dosage and agent: None. COMPARISON: FINDINGS: BRAIN PARENCHYMA: No intra- or extra-axial hemorrhage. Mild atrophy and moderate periventricular white matter ischemic changes .. There is preservation of the hernandez/white matter interface. Posterior fossa structures are unremarkable. CSF SPACES: Appropriate for age. No hydrocephalus. Basal cisterns are patent. CALVARIUM, SKULL BASE, PARANASAL SINUSES AND MASTOID AIR CELLS: Clear. No discrete lytic or blastic abnormalities. Soft tissue swelling in the scalp overlying the left parietal bone without acute skull fracture ORBITS: Both globes, extraocular muscles, optic nerves and retrobulbar fat appear unremarkable. Mild calcific plaquing of the cavernous carotids. CT/Brain/Head without Contrast IMPRESSION: Soft tissue swelling of the scalp overlying the left parietal bone without associated fracture or acute intracranial hemorrhage Mild atrophy and moderate periventricular white matter ischemic change. Electronically Signed: Scottie Phipps MD at 20:24 EST ,
--- NOTE | 2022-04-13 19:02 | EKG12_ITS ---
Test Reason : SOB Blood Pressure : / mmHG Vent. Rate : 108 BPM Atrial Rate : 000 BPM P-R Int : 000 ms QRS Dur : 082 ms QT Int : 332 ms P-R-T Axes : 000 -28 143 degrees QTc Int : 444 ms Sinus vs Ectopic atrial tachycardia Low voltage QRS Septal infarct , age undetermined Abnormal ECG Confirmed by EMERSON LAKE, HONEY ([id number]), medical transcription editor TAMIKO BELTRAN ([id number]) on 04/15/2022 10:43:25 AM Referred By: Confirmed By:HONEY NORMAN MD
--- NOTE | 2022-04-13 19:04 | EX.ED.DYSGE1 ---
HPI History of Present Illness Chief Complaint: Fall Narrative Narrative: 66-year-old female past medical history of COPD, asthma, hypertension presents via EMS because of increasing shortness of breath and fall today. Per sister relates history that she was visiting her at home. She was lying on the couch, stated that she did not feel well. Denied any fevers or chills but states that she was having increasing shortness of breath today. They got her up to go to the bathroom. Sister noted that the patient felt weak so she got her walker. She left her to get a roll of toilet paper, and the patient fell backwards, striking her head. There was no loss of consciousness. She denies any headache currently. That happened earlier today. She does not take blood thinners. They were concerned because they took her pulse ox and it was only in the 80s. However, patient wears up to 3 L of oxygen at home. She states that sometimes she takes it off although she probably needs to be wearing it at all times. She continues to smoke. PFSH PFSH Medical History Arthritis Asthma COPD (chronic obstructive pulmonary disease) Depression Dry skin dermatitis History of wrist fracture Preventative health care Smoker Home Medications ibuprofen 200 mg tablet 200 mg PO Q6H PRN Pain 02/09/19 [History Last Taken 02/27/21] Handicap Placard #1 ea 09/23/21 [Rx Last Taken Unknown] hydrocortisone 2.5 % topical cream 1 applic topical BID PRN rash #30 grams 12/24/21 [Rx Last Taken Unknown] lisinopril 10 mg tablet 10 mg PO DAILY #90 tabs 12/24/21 [Rx Last Taken Unknown] albuterol sulfate 90 mcg/actuation aerosol inhaler (Ventolin HFA) 2 puff inhalation Q6H PRN shortness of breath or wheezing #8.5 grams 01/14/22 [Rx Last Taken Unknown] budesonide-formoterol HFA 80 mcg-4.5 mcg/actuation aerosol inhaler (Symbicort) 2 puff inhalation BID #10.2 grams 01/21/22 [Rx Last Taken Unknown] citalopram 40 mg tablet 40 mg PO QDAY #90 tabs 02/20/22 [Rx Last Taken Unknown] amlodipine 10 mg tablet 10 mg PO DAILY #30 tabs 03/18/22 [Rx Last Taken Unknown] Allergy/AdvReac Type Severity Reaction Status Date / Time No Known Allergies Allergy Verified 04/13/22 18:06 Family History Father COPD (chronic obstructive pulmonary disease) Mother COPD (chronic obstructive pulmonary disease) Heart disease Surgical History cyst removed off knee History of tonsillectomy spur removal in heel Social History Smoking Status: Current every day smoker tobacco type: cigarettes Tobacco: How many years used: 40 alcohol intake: never substance use type: does not use what type of physical activity do you participate in: none ROS ROS ED ROS Narrative Constitutional: No fever, no chills. Fell today. Complains of not feeling well. HEENT: No sore throat. No neck pain. No loss of vision. No rhinorrhea. Cardiovascular: No chest pain. No palpitations. No pedal edema. Respiratory: Occasional cough, increasing shortness of breath today/worsening shortness of breath. Abdominal: No abdominal pain. No nausea. No vomiting. Genitourinary: No dysuria. No hematuria. Musculoskeletal: No myalgias. No arthralgias. Neurologic: No headaches. No dizziness. No lightheadedness. No paresthesias. Skin: No rash. No change in color. Psychiatric: No depression. No anxiety. EXAM Physical Exam Const Vital Signs: 04/13/22 18:00 04/13/22 18:06 04/13/22 19:13 Temperature 98.4 F 98.4 F Temperature Source Temporal Pulse Rate 107 H 120 H Respiratory Rate 18 20 H Respiratory Effort Labored Respiratory Depth Shallow Respiratory Pattern Normal Blood Pressure 158/63 H Blood Pressure Mean 94 Pulse Ox 98 Oxygen Delivery Method Nasal Cannula Nasal Cannula Oxygen Flow Rate (L/min) 3 3 04/13/22 21:59 Temperature Temperature Source Pulse Rate 108 H Respiratory Rate 20 H Respiratory Effort Respiratory Depth Respiratory Pattern Blood Pressure 134/68 H Blood Pressure Mean 90 Pulse Ox 97 Oxygen Delivery Method Nasal Cannula Oxygen Flow Rate (L/min) 3 MDM MDM MDM Narrative Medical decision making narrative: I do feel that when her sister found her to be hypoxic on room air, that the patient did not have her oxygen on and that that is probably her baseline oxygenation when she does not wear her nasal cannula oxygen secondary to her COPD. Smoking cessation was discussed. CBC shows slightly elevated white count of 12.2, hemoglobin normal at 13.8, hematocrit 42.0. Platelet count of 304 and normal. Electrolyte panel is grossly unremarkable except for glucose of 145 and a normal anion gap of 6. BNP 46.9. Troponin is elevated at 105. My interpretation of her EKG demonstrates normal sinus rhythm at [address] changes. No STEMI. CT of the brain shows soft tissue swelling but no evidence of acute intracranial bleed or skull fracture. My interpretation of her chest x-ray shows no acute process. At this point in time, given her elevated troponin, she was administered aspirin orally. She is a smoker and does have risk factors. She stated that she did not have any chest pain today but did feel lightheaded and dizzy and did not feel well with increased shortness of breath which may have been her anginal equivalent. I discussed patient with Dr. Haider who does not suggest heparin at this time but to have the patient observed and cycle her troponins and they can do a stress test in the morning. I then discussed patient with Dr. Oscar Kyle for observation on the PCU. Disposition is assigned to observation. Patient is in stable condition. Lab Data Attestation: I reviewed the patient's lab results. Labs: Laboratory Results - last 24 hr 04/13/22 04/13/22 04/13/22 19:25 19:25 19:25 WBC 12.2 H RBC 4.56 Hgb 13.8 Hct 42.0 MCV 92.1 MCH 30.3 MCHC 32.9 RDW Std Deviation 46.6 H RDW Coeff of Bigg 13.7 Plt Count 304 MPV 9.2 Immature Gran % (Auto) 0.400 Neut % (Auto) 84.1 H Lymph % (Auto) 4.2 L [place] % (Auto) 10.5 H Eos % (Auto) 0.1 Baso % (Auto) 0.7 Absolute Neuts (auto) 10.2 H Absolute Lymphs (auto) 0.51 L Nucleated RBC % 0 Differential Comment SCANNED Sodium 140 Potassium 4.1 Chloride 107 Carbon Dioxide 27.0 Anion Gap 6 BUN 12 Creatinine 0.79 Estim Creat Clear Calc 50.85 Est GFR (MDRD) Af Amer 94 Est GFR (MDRD) Non-Af 77 BUN/Creatinine Ratio 15.2 Glucose 145 H Calcium 8.7 Troponin I High Sens 105 H B-Natriuretic Peptide 46.9 Radiography Diagnostic Testing: Clinical Impression(s) from Imaging Studies Brain CT 04/13/22 19:01 IMPRESSION: Soft tissue swelling of the scalp overlying the left parietal bone without associated fracture or acute intracranial hemorrhage Mild atrophy and moderate periventricular white matter ischemic change. Electronically Signed: Scottie Phipps MD at 20:24 EST , Chest X-Ray 04/13/22 19:35 IMPRESSION: No radiographic evidence of acute cardiopulmonary disease. Electronically Signed: cSottie Phipps MD at 19:55 EST , Discharge Plan Dx/Rx/DC Orders Clinical Impression: Elevated troponin, COPD (chronic obstructive pulmonary disease), Closed head injury, SOB (shortness of breath) Disposition Disposition: Acute Care Hospital [facility]
[2022-04-13] MEDS: Ipratropium/Albuterol Sulfate 3 ML AMPUL.NEB INHALATION (19:12)
[2022-04-13 19:13] VITALS: PULSE 120; RESP 20
[2022-04-13] MEDS: predniSONE 20 MG Tablet 60 MG PO (19:25)
--- NOTE | 2022-04-13 19:35 | RAD_ITS ---
INDICATION: Shortness of Breath EXAMINATION/TECHNIQUE: X-RAY - XR Chest 1 View COMPARISON: February 27, 2021 FINDINGS: LINES/DEVICES: None. LUNGS: No consolidation, edema or effusion. No pneumothorax. MEDIASTINUM AND CARDIOVASCULAR STRUCTURES: Cardiac silhouette not enlarged. Mildly calcified thoracic aorta Central airways and mediastinal contour are unremarkable. BONES AND SOFT TISSUES: Dorsal spine and shoulders demonstrate degenerative changes. RAD/Chest 1 View (Portable) IMPRESSION: No radiographic evidence of acute cardiopulmonary disease. Electronically Signed: Scottie Phipps MD at 19:55 EST ,
[2022-04-13 19:38] LABS: Absolute Lymphocyte Count 0.51 X10^3/uL (0.83-4.51); Absolute Neutrophil Count 10.2 X10^3/uL (2.0-7.7); Basophil# 0.08 X10^3/uL; Basophil% 0.7 % (0-1); Eosinophil# 0.01 X10^3/uL; Eosinophils% 0.1 % (0-5); Hemoglobin 13.8 g/dL (12.0-15.0); Lymphocyte # 0.51 X10^3/ul (0.83-4.51); Lymphocyte % 4.2 % (19-41); Mean Corp Hgb Conc 32.9 g/dL (32-36); Mean Corpuscular Hgb 30.3 pg (27.0-32.0); Mean Corpuscular Volume 92.1 fL (81-99); Mean Platelet Vol. 9.2 fl (6.2-12.0); Monocyte# 1.28 X10^3/uL; Monocyte% 10.5 % (0-10); NRBC Flagged by Analyzer 0 % (0-5); Neutrophil # 10.24 X10^3/uL (2.7-7.7); Neutrophil % 84.1 % (47-70); POSITIVE DIFFERENTIAL YES; Platelet Count 304 K/mm3 (150-450); RBC Distribution Width CV 13.7 % (11.6-14.6); RBC Distribution Width SD 46.6 fl (35.1-43.9); Red Blood Count 4.56 M/mm3 (4.2-5.4); White Blood Count 12.2 K/mm3 (4.4-11.0)
[2022-04-13 19:39] LABS: Differential Indicated SCAN CRITERIA MET
[2022-04-13 19:54] LABS: BNP,B-Type NATRIURETIC PEPTIDE 46.9 pg/mL (0-100)
[2022-04-13 19:56] LABS: Anion Gap 6 (5-15); BUN 12 mg/dL (7-18); BUN/Creat Ratio 15.2 RATIO (10-20); Calcium,Total 8.7 mg/dL (8.5-10.1); Chloride 107 mmol/L (98-107); Creatinine, Serum 0.79 mg/dL (0.55-1.02); EST Glomerular Filtration Rate 77 mL/min (>60); Est Glom Filt Rate - Afr Amer 94 mL/min (>60); Estimated Creatinine Clearance 50.85 ml/min; Glucose 145 mg/dL (74-106); Potassium 4.1 mmol/L (3.5-5.1); Sodium Level 140 mmol/L (136-145); Troponin-I HS 105 pg/mL (3.0-54.0)
[2022-04-13 20:00] LABS: Differential Comment SCANNED
[2022-04-13 21:59] VITALS: BP 134/68; PULSE 108; RESP 20; O2SAT 97
[2022-04-13] MEDS: Aspirin 81 MG TAB.CHEW 324 MG PO (22:00)
[2022-04-13 22:15] VITALS: BP 134/68; PULSE 109; RESP 20; TEMP 36.9; O2SAT 94
--- NOTE | 2022-04-13 22:16 | PCM.HP.STD ---
HPI - General General Date of Admission: 04/13/22 Date of Service: 04/13/22 Chief Complaint: Elevated troponin, fall HPI Narrative GERI PACHECO, is a 66 F who presents to the emergency room after sustaining a fall at home where she hit her head. Patient has a significant past medical history of COPD with oxygen at home who earlier today had a fall and hit her head at home. Her sister states she was diaphoretic upon her arrival. CT scan of the head is negative for intracranial hemorrhage however she does have some soft tissue swelling of the scalp. Patient denies loss of consciousness and denies chest pain but does have shortness of breath and has had more weakness than usual recently. Patient has an abnormal troponin high-sensitivity of 105 and EKG of normal sinus rhythm. She will be admitted to the progressive care unit floor cardiac enzymes cycled and a stress test ordered for the a.m. [facility] Medical History Arthritis Asthma COPD (chronic obstructive pulmonary disease) Depression Dry skin dermatitis History of wrist fracture Preventative health care Smoker Home Medications ibuprofen 200 mg tablet 200 mg PO Q6H PRN Pain 02/09/19 [History Last Taken 02/27/21] Handicap Placard #1 ea 09/23/21 [Rx Last Taken Unknown] lisinopril 10 mg tablet 10 mg PO DAILY #90 tabs 12/24/21 [Rx Last Taken Unknown] albuterol sulfate 90 mcg/actuation aerosol inhaler (Ventolin HFA) 2 puff inhalation Q6H PRN shortness of breath or wheezing #8.5 grams 01/14/22 [Rx Last Taken Unknown] budesonide-formoterol HFA 80 mcg-4.5 mcg/actuation aerosol inhaler (Symbicort) 2 puff inhalation BID #10.2 grams 01/21/22 [Rx Last Taken Unknown] citalopram 40 mg tablet 40 mg PO QDAY #90 tabs 02/20/22 [Rx Last Taken Unknown] amlodipine 10 mg tablet 10 mg PO DAILY #30 tabs 03/18/22 [Rx Last Taken Unknown] cholecalciferol (vitamin D3) 25 mcg (1,000 unit) tablet (Vitamin D3) 25 mcg PO DAILY 04/13/22 [History Last Taken Unknown] pantoprazole 40 mg tablet,delayed release 40 mg PO DAILY 04/13/22 [History Last Taken Unknown] varenicline 1 mg tablet 1 mg PO BID 04/13/22 [History Last Taken Unknown] Allergy/AdvReac Type Severity Reaction Status Date / Time No Known Allergies Allergy Verified 04/13/22 18:06 Family History Father COPD (chronic obstructive pulmonary disease) Mother COPD (chronic obstructive pulmonary disease) Heart disease Surgical History cyst removed off knee History of tonsillectomy spur removal in heel Social History Smoking Status: Current every day smoker tobacco type: cigarettes Tobacco: How many years used: 40 alcohol intake: never substance use type: does not use what type of physical activity do you participate in: none ROS Constitutional Constitutional: Reports weakness; Denies chills or fever(s) Eyes Eyes: Denies change in vision ENT HEENT: Denies abnormal hearing Cardiovascular Cardiovascular: Denies chest pain or palpitations Respiratory/Chest Respiratory/Chest: Denies cough Gastrointestinal Gastrointestinal: Denies abdominal pain Genitourinary Genitourinary: Denies dysuria Musculoskeletal Musculoskeletal: Denies back pain Integumentary Integumentary: Denies dry skin Neurologic Neurologic: Denies abnormal speech or confusion Psychiatric Psychiatric: Denies anxiety Vital Signs Vital Signs Vital Signs: 04/13/22 18:00 04/13/22 18:06 04/13/22 19:13 Temperature 98.4 F 98.4 F Temperature Source Temporal Pulse Rate 107 H 120 H Respiratory Rate 18 20 H Respiratory Effort Labored Respiratory Depth Shallow Respiratory Pattern Normal Blood Pressure 158/63 H Blood Pressure Mean 94 Pulse Ox 98 Oxygen Delivery Method Nasal Cannula Nasal Cannula Oxygen Flow Rate (L/min) 3 3 04/13/22 21:59 Temperature Temperature Source Pulse Rate 108 H Respiratory Rate 20 H Respiratory Effort Respiratory Depth Respiratory Pattern Blood Pressure 134/68 H Blood Pressure Mean 90 Pulse Ox 97 Oxygen Delivery Method Nasal Cannula Oxygen Flow Rate (L/min) 3 Weight Weight: 130 lb 1.164 oz Body Mass Index (BMI) 28.1 Physical Exam Const oriented x3 General Appearance: cooperative HEENT normocephalic Head and Scalp: hematoma Hematoma Size: Mild anterior scalp Eyes PERRL and EOMs intact bilaterally Neck no lymphadenopathy Lymph Lymphatic: no lymphadenopathy noted Resp normal respiratory effort, normal air movement and clear to auscultation bilaterally Effort and Inspection: Negative for respiratory distress Cardio regular rhythm, S1 normal heart sound, S2 normal heart sound and no murmurs Rate: tachycardic GI normal to inspection, nondistended, normoactive bowel sounds Extremity normal capillary refill Skin General Skin Exam: no breakdown Neuro no focal motor deficits and no sensory deficits noted Psych thought process normal, cooperative and affect normal Results Lab / Micro Data Result Diagrams: 04/13/22 19:25 04/13/22 19:25 Labs: Laboratory Results - last 24 hr 04/13/22 19:25: WBC 12.2 H, RBC 4.56, Hgb 13.8, Hct 42.0, MCV 92.1, MCH 30.3, MCHC 32.9, RDW Std Deviation 46.6 H, RDW Coeff of Bigg 13.7, Plt Count 304, MPV 9.2, Immature Gran % (Auto) 0.400, Neut % (Auto) 84.1 H, Lymph % (Auto) 4.2 L, Powell % (Auto) 10.5 H, Eos % (Auto) 0.1, Baso % (Auto) 0.7, Absolute Neuts (auto) 10.2 H, Absolute Lymphs (auto) 0.51 L, Nucleated RBC % 0, Differential Comment SCANNED 04/13/22 19:25: Sodium 140, Potassium 4.1, Chloride 107, Carbon Dioxide 27.0, Anion Gap 6, BUN 12, Creatinine 0.79, Estim Creat Clear Calc 50.85, Est GFR (MDRD) Af Amer 94, Est GFR (MDRD) Non-Af 77, BUN/Creatinine Ratio 15.2, Glucose 145 H, Calcium 8.7, Troponin I High Sens 105 H 04/13/22 19:25: B-Natriuretic Peptide 46.9 Micro: Microbiology 04/13/22 19:55 Nasal Secretion SARS-CoV-2 & FLU Antigen (Rapid) - Final Radiology Impression Brain CT 04/13/22 19:01 IMPRESSION: Soft tissue swelling of the scalp overlying the left parietal bone without associated fracture or acute intracranial hemorrhage Mild atrophy and moderate periventricular white matter ischemic change. Electronically Signed: Scottie Phipps MD at 20:24 EST , Chest X-Ray 04/13/22 19:35 IMPRESSION: No radiographic evidence of acute cardiopulmonary disease. Electronically Signed: Scottie Phipps MD at 19:55 EST Reading Location ID and State: [facility] / [place] , Service support , Assessment & Plan Assessment/Plan (1) Elevated troponin: (2) COPD (chronic obstructive pulmonary disease): (3) Closed head injury: (4) Hypertension: QUALIFIERS: Hypertension type: primary hypertension Qualified Code(s): I10 - Essential (primary) hypertension (5) Anxiety and depression: PLAN: Plan 1. Elevated troponin?admit patient to progressive care unit, cycle cardiac enzymes, oxygen, nitroglycerin and aspirin per routine protocol, order stress test in the a.m. 2. COPD continue oxygen and routine home medications 3. Closed head injury?CT scan negative for intracranial hemorrhage we will continue to monitor ice as needed for scalp 4. Hypertension?continue routine home medication 5. Anxiety depression?continue SSRI 6. DVT prophylaxis?low molecular weight heparin Charges/Coding Visit Charges OBSV E&M: 13645 Initial observation care L2
[2022-04-13 22:27] LABS: Troponin-I HS 109 pg/mL (3.0-54.0)
[2022-04-13 23:14] VITALS: PULSE 99; RESP 16; O2SAT 97
[2022-04-14] VITALS (19 sets, daily range): BP systolic 98–170; BP diastolic 54–84; PULSE 87–121; RESP 16–28; TEMP 36.3–38.1; O2SAT 88–97; BMI 28.1
[2022-04-14 03:54] LABS: Absolute Lymphocyte Count 0.59 X10^3/uL (0.83-4.51); Absolute Neutrophil Count 8.1 X10^3/uL (2.0-7.7); Basophil# 0.06 X10^3/uL; Basophil% 0.7 % (0-1); Hematocrit 41.4 % (37-47); Hemoglobin 13.6 g/dL (12.0-15.0); Lymphocyte # 0.59 X10^3/ul (0.83-4.51); Lymphocyte % 6.6 % (19-41); Mean Corp Hgb Conc 32.9 g/dL (32-36); Mean Corpuscular Hgb 30.6 pg (27.0-32.0); Mean Platelet Vol. 10.1 fl (6.2-12.0); Monocyte# 0.21 X10^3/uL; Monocyte% 2.3 % (0-10); NRBC Flagged by Analyzer 0 % (0-5); Neutrophil # 8.06 X10^3/uL (2.7-7.7); Neutrophil % 90.1 % (47-70); POSITIVE DIFFERENTIAL YES; Platelet Count 321 K/mm3 (150-450); RBC Distribution Width CV 13.7 % (11.6-14.6); RBC Distribution Width SD 46.4 fl (35.1-43.9); Red Blood Count 4.45 M/mm3 (4.2-5.4)
[2022-04-14 04:01] LABS: Differential Indicated SCAN CRITERIA MET
[2022-04-14 04:13] LABS: Troponin-I HS 98 pg/mL (3.0-54.0)
[2022-04-14 04:16] LABS: Anion Gap 7 (5-15); BUN 17 mg/dL (7-18); BUN/Creat Ratio 23.4 RATIO (10-20); Calcium,Total 8.5 mg/dL (8.5-10.1); Chloride 105 mmol/L (98-107); Creatinine, Serum 0.73 mg/dL (0.55-1.02); EST Glomerular Filtration Rate 85 mL/min (>60); Est Glom Filt Rate - Afr Amer 103 mL/min (>60); Estimated Creatinine Clearance 50.85 ml/min; Glucose 158 mg/dL (74-106); Potassium 4.3 mmol/L (3.5-5.1); Sodium Level 140 mmol/L (136-145)
[2022-04-14 04:25] LABS: Differential Comment SCANNED
--- NOTE | 2022-04-14 05:00 | EKG12_ITS ---
Test Reason : AM Blood Pressure : / mmHG Vent. Rate : 090 BPM Atrial Rate : 090 BPM P-R Int : 154 ms QRS Dur : 088 ms QT Int : 384 ms P-R-T Axes : 050 -40 036 degrees QTc Int : 469 ms Normal sinus rhythm Left axis deviation Nonspecific ST and T wave abnormality Poor R wave progression Abnormal ECG Confirmed by EMERSON LAKE, HONEY ([id number]), news videotape editor TAMIKO BELTRAN ([id number]) on 04/17/2022 7:49:29 AM Referred By: LUCA Confirmed By:HONEY NORMAN MD
[2022-04-14] MEDS: amLODIPine 10 MG Tablet PO (06:03)
[2022-04-14] MEDS: Albuterol 2.5 MG/3 ML VIAL.NEB. INHALATION (07:51)
--- NOTE | 2022-04-14 08:12 | PCM.CONS.C ---
Assessment & Plan Assessment/Plan (1) Elevated troponin: PLAN: Patient has a history of elevated troponin. I do not think that this is primary cardiac in etiology in the sense that I do not think that is related to plaque rupture. It is likely demand ischemia. We should proceed with a myocardial perfusion stress test and depending on the findings further recommendations will be made. If no significant ischemia is noted I would suggest outpatient follow-up and discharge. (2) Hypertension: QUALIFIERS: Hypertension type: primary hypertension Qualified Code(s): I10 - Essential (primary) hypertension PLAN: Blood pressure appears to be under good control at this time I would not recommend that we make any major changes. She will continue on her GERSON inhibitor. HPI Consult Data Date of Consult: 04/14/22 HPI Narrative HPI Narrative: GERI PACHECO, is a 66 F who presents to the emergency room after she had a fall. She did not lose any consciousness before this happened. She has not had any prior cardiac issues. She denies any chest pain. She is chronically short of breath and uses home oxygen. She has not had any previous cardiac issues. She denies any neck arm or jaw discomfort suggest angina. She was getting up and she apparently slipped and fell. She did apparently hit her head. She presented to the emergency room her EKG demonstrated normal sinus rhythm with a rate of 90 bpm and no acute changes. Cardiac enzymes were checked which were abnormal and cardiology was called for further evaluation and management. PFSH Medical History Arthritis Asthma COPD (chronic obstructive pulmonary disease) Depression Dry skin dermatitis History of wrist fracture Preventative health care Smoker Home Medications ibuprofen 200 mg tablet 200 mg PO Q6H PRN Pain 02/09/19 [History Last Taken 02/27/21] Handicap Placard #1 ea 09/23/21 [Rx Last Taken Unknown] lisinopril 10 mg tablet 10 mg PO DAILY #90 tabs 12/24/21 [Rx Last Taken Unknown] albuterol sulfate 90 mcg/actuation aerosol inhaler (Ventolin HFA) 2 puff inhalation Q6H PRN shortness of breath or wheezing #8.5 grams 01/14/22 [Rx Last Taken Unknown] budesonide-formoterol HFA 80 mcg-4.5 mcg/actuation aerosol inhaler (Symbicort) 2 puff inhalation BID #10.2 grams 01/21/22 [Rx Last Taken Unknown] citalopram 40 mg tablet 40 mg PO QDAY #90 tabs 02/20/22 [Rx Last Taken Unknown] amlodipine 10 mg tablet 10 mg PO DAILY #30 tabs 03/18/22 [Rx Last Taken Unknown] cholecalciferol (vitamin D3) 25 mcg (1,000 unit) tablet (Vitamin D3) 25 mcg PO DAILY 04/13/22 [History Last Taken Unknown] pantoprazole 40 mg tablet,delayed release 40 mg PO DAILY 04/13/22 [History Last Taken Unknown] varenicline 1 mg tablet 1 mg PO BID 04/13/22 [History Last Taken Unknown] Allergy/AdvReac Type Severity Reaction Status Date / Time No Known Allergies Allergy Verified 04/13/22 18:06 Family History Father COPD (chronic obstructive pulmonary disease) Mother COPD (chronic obstructive pulmonary disease) Heart disease Surgical History cyst removed off knee History of tonsillectomy spur removal in heel Social History Smoking Status: Current every day smoker tobacco type: cigarettes Tobacco: How many years used: 40 alcohol intake: never substance use type: does not use what type of physical activity do you participate in: none ROS Constitutional Constitutional: Denies fever(s) or weight loss Eyes Eyes: Reports systems reviewed and no addt'l complaints, except as documented ENT HEENT: Reports systems reviewed and no addt'l complaints, except as documented Cardiovascular Cardiovascular: Reports dyspnea at rest and dyspnea on exertion; Denies chest pain at rest, chest pain with activity, edema, palpitations or paroxysmal nocturnal dyspnea Respiratory/Chest Respiratory/Chest: Denies dyspnea on exertion, productive cough, shortness of breath at rest or shortness of breath with exertion Gastrointestinal Gastrointestinal: Denies change in bowel habits, nausea, vomiting or weight changes Genitourinary Genitourinary: Denies difficulty urinating Musculoskeletal Musculoskeletal: Denies joint stiffness or muscle weakness Integumentary Integumentary: Denies lesions Neurologic Neurologic: Denies dizziness or syncope Psychiatric Psychiatric: Denies anxiety Endocrine Endocrinology: Denies excessive sweating or fatigue Hematologic/Lymphatic Hematologic/Lymphatic: Denies anemia Allergic/Immunologic Allergic/Immunologic: Denies seasonal rhinorrhea Physical Exam Const alert, oriented x3 and no apparent distress General Appearance: cooperative HEENT hearing grossly normal bilaterally Head and Scalp: atraumatic Eyes EOMs intact bilaterally Neck General: normal visual inspection Chest inspection of chest normal and palpation of chest normal Resp normal respiratory effort Auscultation: clear to auscultation bilaterally Cardio regular rate, regular rhythm, S1 normal heart sound and S2 normal heart sound Jugular Venous Distention: JVD GI normal to inspection, nondistended, normoactive bowel sounds Extremity normal capillary refill and no pedal edema Peripheral Pulses: Yes pulses 2+ throughout and femoral pulses present Skin no rashes or lesions noted Neuro oriented x3 and CN's II-XII intact bilaterally Psych Appearance: grossly normal and appropriate Risk Stratification Risk Stratification Applicable: Yes Age >/= 65: Yes >/= 3 CAD Risk Factors (HTN, HLD, DM, family hx of CAD, or current smoker): No Aspirin Use in the Past 7 Days: No Severe Angina (>/= episodes in 24 hours): No EKG ST Changes >/= 0.5mm: No Positive Cardiac Marker: Yes THERESA Risk Stratification Score: 2 THERESA % Risk: 8% Risk Objective Data Vital Signs: Vital Signs Temp Pulse Resp BP Pulse Ox O2 Del Method O2 Flow Rate 98.2 F 108 H 24 H 145/84 H 96 Nasal Cannula 2 04/14/22 07:50 04/14/22 07:52 04/14/22 07:52 04/14/22 07:50 04/14/22 07:52 04/14/22 07:52 04/14/22 07:52 Oxygen Flow Rate (L/min) 2 Oxygen Delivery Method Nasal Cannula Weight: 130 lb 1.164 oz Body Mass Index (BMI) 28.1 Lab / Micro Data Result Diagrams: 04/14/22 03:27 04/14/22 03:27 Labs: Laboratory Results - last 24 hr 04/13/22 19:25: WBC 12.2 H, RBC 4.56, Hgb 13.8, Hct 42.0, MCV 92.1, MCH 30.3, MCHC 32.9, RDW Std Deviation 46.6 H, RDW Coeff of Bigg 13.7, Plt Count 304, MPV 9.2, Immature Gran % (Auto) 0.400, Neut % (Auto) 84.1 H, Lymph % (Auto) 4.2 L, Carlton % (Auto) 10.5 H, Eos % (Auto) 0.1, Baso % (Auto) 0.7, Absolute Neuts (auto) 10.2 H, Absolute Lymphs (auto) 0.51 L, Nucleated RBC % 0, Differential Comment SCANNED 04/13/22 19:25: Sodium 140, Potassium 4.1, Chloride 107, Carbon Dioxide 27.0, Anion Gap 6, BUN 12, Creatinine 0.79, Estim Creat Clear Calc 50.85, Est GFR (MDRD) Af Amer 94, Est GFR (MDRD) Non-Af 77, BUN/Creatinine Ratio 15.2, Glucose 145 H, Calcium 8.7, Troponin I High Sens 105 H 04/13/22 19:25: B-Natriuretic Peptide 46.9 04/13/22 21:45: Troponin I High Sens 109 H 04/14/22 03:27: WBC 9.0, RBC 4.45, Hgb 13.6, Hct 41.4, MCV 93.0, MCH 30.6, MCHC 32.9, RDW Std Deviation 46.4 H, RDW Coeff of Bigg 13.7, Plt Count 321, MPV 10.1, Immature Gran % (Auto) 0.300, Neut % (Auto) 90.1 H, Lymph % (Auto) 6.6 L, Carlton % (Auto) 2.3, Eos % (Auto) 0.0, Baso % (Auto) 0.7, Absolute Neuts (auto) 8.1 H, Absolute Lymphs (auto) 0.59 L, Nucleated RBC % 0, Differential Comment SCANNED 04/14/22 03:27: Sodium 140, Potassium 4.3, Chloride 105, Carbon Dioxide 28.0, Anion Gap 7, BUN 17, Creatinine 0.73, Estim Creat Clear Calc 50.85, Est GFR (MDRD) Af Amer 103, Est GFR (MDRD) Non-Af 85, BUN/Creatinine Ratio 23.4 H, Glucose 158 H, Calcium 8.5 04/14/22 03:27: Troponin I High Sens 98 H Micro: Microbiology 04/13/22 19:55 Nasal Secretion SARS-CoV-2 & FLU Antigen (Rapid) - Final Cardiology Labs/Tests 04/13/22 19:25: WBC 12.2 H, RBC 4.56, Hgb 13.8, Hct 42.0, MCV 92.1, MCH 30.3, MCHC 32.9, Plt Count 304, MPV 9.2, Immature Gran % (Auto) 0.400, Neut % (Auto) 84.1 H, Lymph % (Auto) 4.2 L, Carlton % (Auto) 10.5 H, Eos % (Auto) 0.1, Baso % (Auto) 0.7, Absolute Neuts (auto) 10.2 H, Nucleated RBC % 0 04/13/22 19:25: Sodium 140, Potassium 4.1, Chloride 107, Carbon Dioxide 27.0, Anion Gap 6, BUN 12, Creatinine 0.79, Est GFR (MDRD) Af Amer 94, Est GFR (MDRD) Non-Af 77, BUN/Creatinine Ratio 15.2, Glucose 145 H, Calcium 8.7 04/13/22 19:25: B-Natriuretic Peptide 46.9 04/14/22 03:27: WBC 9.0, RBC 4.45, Hgb 13.6, Hct 41.4, MCV 93.0, MCH 30.6, MCHC 32.9, Plt Count 321, MPV 10.1, Immature Gran % (Auto) 0.300, Neut % (Auto) 90.1 H, Lymph % (Auto) 6.6 L, Carlton % (Auto) 2.3, Eos % (Auto) 0.0, Baso % (Auto) 0.7, Absolute Neuts (auto) 8.1 H, Nucleated RBC % 0 04/14/22 03:27: Sodium 140, Potassium 4.3, Chloride 105, Carbon Dioxide 28.0, Anion Gap 7, BUN 17, Creatinine 0.73, Est GFR (MDRD) Af Amer 103, Est GFR (MDRD) Non-Af 85, BUN/Creatinine Ratio 23.4 H, Glucose 158 H, Calcium 8.5 Rhythm: EKG: ECHO: Stress Test: Cardiac Cath: PCI: CT Surgery: Holter monitor: EPS: PPM: CXR: Chest CT Scan: Radiography Diagnostic Testing: Radiology Impression Brain CT 04/13/22 19:01 IMPRESSION: Soft tissue swelling of the scalp overlying the left parietal bone without associated fracture or acute intracranial hemorrhage Mild atrophy and moderate periventricular white matter ischemic change. Electronically Signed: Scottie Phipps MD at 20:24 EST , Chest X-Ray 04/13/22 19:35 IMPRESSION: No radiographic evidence of acute cardiopulmonary disease. Electronically Signed: Scottie Phipps MD at 19:55 EST ,
--- NOTE | 2022-04-14 08:16 | ECHOCS_ITS ---
Reason For Study: SYNCOPE Procedure This was a 2D Doppler, Color Flow transthoracic echocardiogram. The study was technically difficult. Contrast injection was performed. Exam performed portable in ED. Left Ventricle Normal LV size. Left ventricular systolic function is normal. The estimated ejection fraction is 65 %. No regional wall motion abnormalities noted. Right Ventricle Normal RV size. Normal systolic function. Atria Normal left atrium. Normal right atrium. Mitral Valve Mitral valve not well visualized. Tricuspid Valve The tricuspid valve is not well visualized. Aortic Valve The aortic valve is not well visualized. Pulmonic Valve The pulmonic valve is not well visualized. Great Vessels Normal aortic root. Pericardium/Pleural No pericardial effusion. Medication Diluted definity 3ml given slow IV push to enhance endocardial definition. Time Measurements MV dec time: 0.13 sec Doppler Measurements & Calculations MV E max dontrell: 90.4 cm/sec Lat Peak E' Dontrell: 9.3 cm/sec Med Peak E' Dontrell: 9.2 cm/sec MV A max dontrell: 119.8 cm/sec E/E' lat: 9.7 E/E' med: 9.9 MV E/A: 0.75 MV V2 max: 106.7 cm/sec Ao V2 max: 73.3 cm/sec MV max P.6 mmHg MV dec slope: 696.7 cm/sec2 Ao max P.2 mmHg MV V2 mean: 67.6 cm/sec Ao V2 mean: 52.5 cm/sec MV mean P.1 mmHg Ao mean P.2 mmHg MV V2 VTI: 16.4 cm Ao V2 VTI: 12.8 cm AV (velocity ratio): 0.97 LV V1 max: 76.0 cm/sec LV V1 max P.3 mmHg LV V1 mean P.3 mmHg LV V1 mean: 54.8 cm/sec LV V1 VTI: 12.4 cm ECHO/Echo Complete W/ Contrast Interpretation Summary Normal LV size. Left ventricular systolic function is normal. The estimated ejection fraction is 65 %. Contrast injection was performed. Ordering Physician: Camden Haider Referring Physician: Kajal Ny Performed By: Anita Paul RCS
[2022-04-14] MEDS: Budesonide Respules 0.5 MG/2 ML AMPUL.NEB. INHALATION ×2 (08:19→20:03)
--- NOTE | 2022-04-14 11:36 | STRESSREP ---
Stress Test Report Pharmacologic myocardial perfusion stress test. 66-year-old lady with a history of atypical chest pain abnormal cardiac enzymes. Stress protocol: Resting EKG demonstrates sinus rhythm with a rate of 109 bpm normal intervals are noted. Resting blood pressure is 136/81 mmHg. 0.4 mg of regadenoson was infused per usual protocol followed by wrap intravenous saline flush injection continuous EKG monitoring was performed. The maximum heart rate attained was 130 bpm which was 84% of max impacted heart rate the maximum workload was 1 metabolic equivalent. At rest there were no ST or T wave changes noted to suggest abnormal flow reserve and at peak infusion nonspecific ST changes were noted with did not meet the criteria for ischemia. No clinical angina was noted. The final blood pressure was 133/57 mmHg. Myocardial perfusion protocol. 12.0 mCi of technetium 99m sestamibi was injected at rest. 0.4 mg of regadenoson was infused per usual protocol. At peak infusion 35.8 mCi of technetium 99m sestamibi was injected stress images were obtained stress and rest images were reconstructed and compared in the short axis vertical long and horizontal long axis. Gated images were also obtained. Perfusion SPECT analysis: Review of the stress images demonstrate normal uptake of tracer noted in all areas of the myocardium. The resting images similarly demonstrate normal uptake of tracer noted in all areas of the myocardium. No areas of reversibility are noted to suggest ischemia no previous infarct is noted. Gated SPECT analysis: The gated ejection fraction is noted to be 87%. Conclusion: Normal pharmacologic myocardial perfusion stress test. Preserved ejection fraction.
--- NOTE | 2022-04-14 11:48 | DCINST_ITS ---
Discharge Instructions Follow Up Care Test Results: Test results from this visit will be discussed in further detail at your follow- up appointment, if applicable. Discharge Plan Admission Admit Date/Time: 04/13/22 22:23 Attending Provider: Shaunna Lawrence Primary Care Provider: Kajal Ny Consulting Providers: Oscar Kyle Discharge Orders/Prescriptions Prescriptions: No Action ibuprofen 200 mg tablet 200 mg PO Q6H PRN (Reason: Pain) lisinopril 10 mg tablet 10 mg PO DAILY Qty: 90 3RF pantoprazole 40 mg Tablet,Delayed Release (Dr/Ec) 40 mg PO DAILY varenicline 1 mg tablet 1 mg PO BID Label Comments: TAKE 1/2 (ONE-HALF) TABLET BY MOUTH TWICE DAILY FOR 2 WEEKS, THEN 1 TABLET TWICE DAILY cholecalciferol (vitamin D3) [Vitamin D3] 25 mcg (1,000 unit) Tablet 25 mcg PO DAILY (DME) Handicap Placard See Rx Instructions .ROUTE .MEDSUPPLY Qty: 1 0RF Rx Instructions: As directed, length of time 3 years Ventolin HFA 90 mcg/actuation HFA aerosol inhaler 2 puff INHALATION Q6H PRN (Reason: shortness of breath or wheezing) Qty: 8.5 4RF budesonide-formoterol [Symbicort] 80-4.5 mcg/actuation HFA aerosol inhaler 2 puff inhalation BID Qty: 10.2 3RF citalopram 40 mg tablet 40 mg PO QDAY Qty: 90 3RF amlodipine 10 mg tablet 10 mg PO DAILY Qty: 30 1RF Referrals / Follow Up: Kajal Ny MD [Primary Care Provider] - Disposition Discharge Orders: Discharge Patient (Routine); Ordered 04/14/22 Ordered By: Dr. Shaunna Lawrence
[2022-04-14] MEDS: Pantoprazole Sodium 40 MG Tablet PO (13:05)
[2022-04-14] MEDS: Lisinopril 10 MG Tablet PO (13:05)
[2022-04-14] MEDS: Cholecalciferol (VIT D3) 25 MCG TABLET (1,000 UNITS) PO (13:05)
[2022-04-14] MEDS: Enoxaparin 40 MG/0.4 ML Syringe SC (13:06)
[2022-04-14] MEDS: Citalopram 40 MG TABLET PO (13:06)
[2022-04-14] MEDS: Varenicline 1 MG Tablet PO ×2 (13:06→20:57)
[2022-04-14 16:43] LABS: D-Dimer Quantitative (DVT/PE) 1.63 FEU/ug/m (0.27-0.49)
[2022-04-14] MEDS: 0.9% Saline Lock 10 ML Syringe IV ×2 (16:51→20:58)
--- NOTE | 2022-04-14 17:08 | PCM.PN.HOSP ---
Subjective Subjective Follow-up on acute COPD exacerbation/chest pain: Patient was seen and examined. She complains of persistent cough and chest tightness with wheezes. Her stress test today has been negative. Denies any fever or chills. Objective Data Objective Data Vital Signs: Vital Signs Temp Pulse Resp BP Pulse Ox O2 Del Method O2 Flow Rate 100.6 F H 113 H 25 H 137/74 H 96 Nasal Cannula 3 04/14/22 16:53 04/14/22 16:53 04/14/22 16:53 04/14/22 16:53 04/14/22 16:53 04/14/22 16:53 04/14/22 12:00 Oxygen Flow Rate (L/min) 3 Oxygen Delivery Method Nasal Cannula Weight: 59 kg Body Mass Index (BMI) 28.1 Lab / Micro Data Result Diagrams: 04/14/22 03:27 04/14/22 03:27 Labs: Laboratory Results - last 24 hr 04/13/22 19:25: WBC 12.2 H, RBC 4.56, Hgb 13.8, Hct 42.0, MCV 92.1, MCH 30.3, MCHC 32.9, RDW Std Deviation 46.6 H, RDW Coeff of Bigg 13.7, Plt Count 304, MPV 9.2, Immature Gran % (Auto) 0.400, Neut % (Auto) 84.1 H, Lymph % (Auto) 4.2 L, [facility] % (Auto) 10.5 H, Eos % (Auto) 0.1, Baso % (Auto) 0.7, Absolute Neuts (auto) 10.2 H, Absolute Lymphs (auto) 0.51 L, Nucleated RBC % 0, Differential Comment SCANNED 04/13/22 19:25: Sodium 140, Potassium 4.1, Chloride 107, Carbon Dioxide 27.0, Anion Gap 6, BUN 12, Creatinine 0.79, Estim Creat Clear Calc 50.85, Est GFR (MDRD) Af Amer 94, Est GFR (MDRD) Non-Af 77, BUN/Creatinine Ratio 15.2, Glucose 145 H, Calcium 8.7, Troponin I High Sens 105 H 04/13/22 19:25: B-Natriuretic Peptide 46.9 04/13/22 21:45: Troponin I High Sens 109 H 04/14/22 03:27: WBC 9.0, RBC 4.45, Hgb 13.6, Hct 41.4, MCV 93.0, MCH 30.6, MCHC 32.9, RDW Std Deviation 46.4 H, RDW Coeff of Bigg 13.7, Plt Count 321, MPV 10.1, Immature Gran % (Auto) 0.300, Neut % (Auto) 90.1 H, Lymph % (Auto) 6.6 L, [facility] % (Auto) 2.3, Eos % (Auto) 0.0, Baso % (Auto) 0.7, Absolute Neuts (auto) 8.1 H, Absolute Lymphs (auto) 0.59 L, Nucleated RBC % 0, Differential Comment SCANNED 04/14/22 03:27: Sodium 140, Potassium 4.3, Chloride 105, Carbon Dioxide 28.0, Anion Gap 7, BUN 17, Creatinine 0.73, Estim Creat Clear Calc 50.85, Est GFR (MDRD) Af Amer 103, Est GFR (MDRD) Non-Af 85, BUN/Creatinine Ratio 23.4 H, Glucose 158 H, Calcium 8.5 04/14/22 03:27: Troponin I High Sens 98 H 04/14/22 16:05: D-Dimer Quant (PE/DVT) 1.63 H* Micro: Microbiology 04/13/22 19:55 Nasal Secretion SARS-CoV-2 & FLU Antigen (Rapid) - Final Radiography Diagnostic Testing: Radiology Impression Brain CT 04/13/22 19:01 IMPRESSION: Soft tissue swelling of the scalp overlying the left parietal bone without associated fracture or acute intracranial hemorrhage Mild atrophy and moderate periventricular white matter ischemic change. Electronically Signed: Scottie Phipps MD at 20:24 EST , Chest X-Ray 04/13/22 19:35 IMPRESSION: No radiographic evidence of acute cardiopulmonary disease. Electronically Signed: Scottie Phipps MD at 19:55 EST , Physical Exam Narrative Physical exam: General: Alert, Oriented x3, Cooperative, on 3 L of oxygen, in mild respiratory distress with use of accessory muscles of respiration HEENT: Atraumatic Oral: Moist Mucosa Neck: Supple Lungs: Diminished to auscultation, wheezes++ Cardiovascular: HS I+II, regular, no murmurs Abdomen: Bowel Sounds Present, Soft, Non Tender Extremities: No edema Skin: No rashes, No breakdown Neurological: Grossly intact Psych/Mental Status: Appropriate Assessment & Plan Assessment/Plan (1) Elevated troponin: (2) Closed head injury: (3) COPD with acute exacerbation: PLAN: Plan 1. Acute COPD exacerbation in a patient with chronic hypoxic respiratory failure Patient clinically is in severe COPD exacerbation Chest x-ray do not show any infiltrates Rapid COVID-19 antigen test as well as influenza AMB antigen are negative Respiratory panel is pending Continue with breathing treatment?ipratropium only, IV Solu-Medrol, IV azithromycin Encourage use of incentive spirometer 2. Tachycardia, elevated D-dimer, likely related to #1 Will need to rule out acute PE Check CTA of the chest 3. Acute chest pain, ACS ruled out with negative stress test 4. Recent fall, closed head injury, CT of the brain single unremarkable 5. Hypertension, continue on amlodipine, lisinopril 6. Anxiety/depression, continue escitalopram 7. GERD, continue PPI 8. Nicotine dependence, advised to quit, continue on Chantix 9. DVT PPx- Lovenox SC Charges/Coding Visit Charges Inpatient E&M: 75425 Subs Hosp L3
--- NOTE | 2022-04-14 17:09 | CT_ITS ---
EXAM: CT ANGIOGRAPHY CHEST WITHOUT AND WITH INTRAVENOUS CONTRAST CLINICAL INDICATION: ELEVATED D-DIMER TECHNIQUE: Helically acquired angiography images were obtained of the chest without and with intravenous contrast. This CT exam was performed using one or more of the following dose reduction techniques: automated exposure control, adjustment of the mA and/or kV according to patient size, and/or use of iterative reconstruction technique. This report was created using [employer] report generation technology. MIP reconstructed images were created and reviewed. CONTRAST: IV 100mL [id number] COMPARISON: None. FINDINGS: PULMONARY ARTERIES: Unremarkable. Normal in caliber. No evidence of pulmonary embolism. AORTA: Unremarkable. Normal in caliber. No evidence of dissection. GREAT VESSELS OF AORTIC ARCH: Unremarkable. Normal in caliber. No evidence of dissection. LUNGS AND PLEURAL SPACES: There are groundglass opacities seen within the right upper lobe which may be an infectious etiology. No mass. No pleural effusion or thickening. No pneumothorax. HEART: Unremarkable. Heart size is normal. No pericardial effusion. No signs of right heart strain, ratio of right ventricle to left ventricle measures less than 1. MEDIASTINUM: Unremarkable. No mediastinal or hilar adenopathy. Esophagus is unremarkable. No hiatal hernia. THYROID: Unremarkable. No thyroid lesions. BONES/JOINTS: Unremarkable. No suspicious lytic or blastic abnormality. CT/CTA Chest W/WO Contrast IMPRESSION: 1. No evidence of pulmonary embolus. 2. Mild groundglass opacities in the right upper lobe which may represent an early infectious etiology. Electronically Signed: Walter Zaman MD at 18:24 EST ,
[2022-04-14] MEDS: Acetaminophen 325 MG Tablet 650 MG PO (18:25)
[2022-04-14] MEDS: Ipratropium 0.5 MG/2.5 ML SOLUTION INHALATION (20:03)
[2022-04-15] VITALS (10 sets, daily range): BP systolic 119–134; BP diastolic 47–60; PULSE 87–106; RESP 14–20; TEMP 36.5–37; O2SAT 88–96
[2022-04-15] MEDS: 0.9% Saline Lock 10 ML Syringe IV ×2 (04:48→13:16)
[2022-04-15] MEDS: Budesonide Respules 0.5 MG/2 ML AMPUL.NEB. INHALATION (06:57)
[2022-04-15] MEDS: Ipratropium 0.5 MG/2.5 ML SOLUTION INHALATION ×3 (06:57→15:06)
[2022-04-15] MEDS: Citalopram 40 MG TABLET PO (09:49)
[2022-04-15] MEDS: Varenicline 1 MG Tablet PO (09:49)
[2022-04-15] MEDS: Lisinopril 10 MG Tablet PO (09:50)
[2022-04-15] MEDS: amLODIPine 10 MG Tablet PO (09:50)
[2022-04-15] MEDS: Enoxaparin 40 MG/0.4 ML Syringe SC (09:50)
[2022-04-15] MEDS: Cholecalciferol (VIT D3) 25 MCG TABLET (1,000 UNITS) PO (09:50)
[2022-04-15] MEDS: Pantoprazole Sodium 40 MG Tablet PO (09:50)
--- NOTE | 2022-04-15 10:09 | CASEMGMT ---
Addendum entered by Nicole Garay 04/15/22 13:21: PARIS STALLWORTH updated that patient will need 4lpm of oxgyen with ambulation. Patient voiced understanding. Patient states she will have sister bring oxygen tank with her for at discharge. PARIS STALLWORTH received script for new oxygen orders and [place] [facility] [place] [employer]. Patient had no further questions or concerns at this time. Original Note: PARIS STALLWORTH in to complete [employer] form with patient. PARIS STALLWORTH explained [employer] form to patient, patient voiced understanding. Patient signed [employer] form and filed in chart. Patient provided with copy of signed [employer] form. Patient states she is on home oxygen through at 3lpm with portability. Patient states she has family that can bring oxygen tank at discharge. Patient denied further needs at this time. Patient had no further questions or concerns at this time. CM will continue to follow this patient and plan for a safe discharge.
--- NOTE | 2022-04-15 12:36 | DCINST_ITS ---
Discharge Instructions Diet Discharge Diet: No restrictions, Low fat / Low cholesterol and 2000 mg Sodium Diet Activity Discharge Activity: Return to Normal Activity Follow Up Care Test Results: Test results from this visit will be discussed in further detail at your follow- up appointment, if applicable. Discharge Plan Admission Admit Date/Time: 04/13/22 22:23 Primary Reason for Your Visit: Acute COPD exacerbation Attending Provider: Shaunna Lawrence Primary Care Provider: Kajal Ny Consulting Providers: Oscar Kyle Instructions Additional Instructions / Restrictions: Continue to wear your oxygen as prescribed. Increase oxygen to 4 L with ambulation Continue to use her incentive spirometer Follow-up with your primary care doctor within a week Discharge Orders/Prescriptions Prescriptions: New prednisone 10 mg tablet See Taper PO DAILY Qty: 30 0RF Taper: Prednisone Taper 40 mg WITH BREAKFAST for 3 Days and 0 Hour 30 mg WITH BREAKFAST for 3 Days and 0 Hour 20 mg WITH BREAKFAST for 3 Days and 0 Hour 10 mg WITH BREAKFAST for 3 Days and 0 Hour azithromycin 500 mg tablet 500 mg PO DAILY 3 Days Qty: 3 0RF Continued ibuprofen 200 mg tablet 200 mg PO Q6H PRN (Reason: Pain) lisinopril 10 mg tablet 10 mg PO DAILY Qty: 90 3RF pantoprazole 40 mg Tablet,Delayed Release (Dr/Ec) 40 mg PO DAILY varenicline 1 mg tablet 1 mg PO BID Label Comments: TAKE 1/2 (ONE-HALF) TABLET BY MOUTH TWICE DAILY FOR 2 WEEKS, THEN 1 TABLET TWICE DAILY cholecalciferol (vitamin D3) [Vitamin D3] 25 mcg (1,000 unit) Tablet 25 mcg PO DAILY (DME) Handicap Placard See Rx Instructions .ROUTE .MEDSUPPLY Qty: 1 0RF Rx Instructions: As directed, length of time 3 years Ventolin HFA 90 mcg/actuation HFA aerosol inhaler 2 puff INHALATION Q6H PRN (Reason: shortness of breath or wheezing) Qty: 8.5 4RF budesonide-formoterol [Symbicort] 80-4.5 mcg/actuation HFA aerosol inhaler 2 puff inhalation BID Qty: 10.2 3RF citalopram 40 mg tablet 40 mg PO QDAY Qty: 90 3RF amlodipine 10 mg tablet 10 mg PO DAILY Qty: 30 1RF Referrals / Follow Up: Kajal Ny MD [Primary Care Provider] - In 1 Week Disposition Disposition (needs filled in before D/C Order can be placed): Home, Self Care
--- NOTE | 2022-04-15 12:42 | PCM.DC.SUM ---
Providers Date of Admission: 04/13/22 Date of Discharge: 04/15/22 Primary Care Physician: Dr. Kajal Ny MD Reason For Visit: ELEVATED TROPONIN, FALL Diagnosis Discharge Diagnosis (1) Elevated troponin: Status: Acute Code(s): R77.8 - Other specified abnormalities of plasma proteins (2) Closed head injury: Status: Acute Code(s): S09.90XA - Unspecified injury of head, initial encounter (3) COPD with acute exacerbation: Status: Chronic Code(s): J44.1 - Chronic obstructive pulmonary disease with (acute) exacerbation Plan 1. Acute COPD exacerbation in a patient with chronic hypoxic respiratory failure 2. Acute chest pain 3. Recent fall, closed head injury 4. Hypertension 5. Anxiety/depression 6. GERD 7. Nicotine dependence Medications at Discharge Home Medications ibuprofen 200 mg tablet 200 mg PO Q6H PRN Pain 02/09/19 Handicap Placard #1 ea 09/23/21 lisinopril 10 mg tablet 10 mg PO DAILY #90 tabs 12/24/21 albuterol sulfate 90 mcg/actuation aerosol inhaler (Ventolin HFA) 2 puff inhalation Q6H PRN shortness of breath or wheezing #8.5 grams 01/14/22 budesonide-formoterol HFA 80 mcg-4.5 mcg/actuation aerosol inhaler (Symbicort) 2 puff inhalation BID #10.2 grams 01/21/22 citalopram 40 mg tablet 40 mg PO QDAY #90 tabs 02/20/22 amlodipine 10 mg tablet 10 mg PO DAILY #30 tabs 03/18/22 cholecalciferol (vitamin D3) 25 mcg (1,000 unit) tablet (Vitamin D3) 25 mcg PO DAILY 04/13/22 pantoprazole 40 mg tablet,delayed release 40 mg PO DAILY 04/13/22 varenicline 1 mg tablet 1 mg PO BID 04/13/22 azithromycin 500 mg tablet 500 mg PO DAILY 3 days #3 tabs 04/15/22 prednisone 10 mg tablet See Taper PO DAILY #30 tabs 04/15/22 Hospital Course Operations None Procedures 2-D Echocardiogram Summary of Care Provided Minutes Spent on Discharge: 35 Hospital Course: 66-year-old female past medical history of COPD on 3 L of oxygen who comes in after a fall in which she hit her head. Patient's vitals in the ED were stable. CT of the head was unremarkable for intracranial hemorrhage. Her admitting blood work was significant for elevated troponins. Patient was admitted to the progressive care unit, cardiology consulted, she underwent stress test which was unremarkable. Patient however has significant shortness of breath with wheezes. She was kept a day for today and managed as acute COPD exacerbation. Her shortness of breath improved with breathing treatment, azithromycin and IV Solu-Medrol. She was discharged on a prednisone taper, 3 more days of azithromycin. She did require 3 L of oxygen at rest and 4 L with exertion. She was asked to follow-up with her primary care doctor within 1 week. Physical Exam Narrative Physical exam: General: Alert, Oriented x3, Cooperative, on 3 L of oxygen HEENT: Atraumatic Oral: Moist Mucosa Neck: Supple Lungs: Diminished to auscultation Cardiovascular: HS I+II, regular, no murmurs Abdomen: Bowel Sounds Present, Soft, Non Tender Extremities: No edema Skin: No rashes, No breakdown Neurological: Grossly intact Psych/Mental Status: Appropriate Weight / BMI Weight Weight: 59 kg Body Mass Index (BMI) 28.1 ABG / Lab / Microbiology Data Result Diagrams: 04/14/22 03:27 04/14/22 03:27 Laboratory: Laboratory Results - last 24 hr 04/14/22 16:05: D-Dimer Quant (PE/DVT) 1.63 H* Microbiology: Microbiology 04/14/22 17:01 Mucosa - Nasopharyngeal Respiratory Panel (PCR) - Final 04/13/22 19:55 Nasal Secretion SARS-CoV-2 & FLU Antigen (Rapid) - Final Radiography Diagnostic Testing: Radiology Impression Echocardiogram 04/14/22 08:16 Interpretation Summary Normal LV size. Left ventricular systolic function is normal. The estimated ejection fraction is 65 %. Contrast injection was performed. Ordering Physician: Camden Haider Referring Physician: Kajal Ny Performed By: Anita Paul RCS Chest CTA 04/14/22 17:09 IMPRESSION: 1. No evidence of pulmonary embolus. 2. Mild groundglass opacities in the right upper lobe which may represent an early infectious etiology. Electronically Signed: Walter Zaman MD at 18:24 EST , D/C Instructions Discharge Diet: No restrictions, Low fat / Low cholesterol and 2000 mg Sodium Diet Meaningful Use Info Meaningful Use Diagnoses (Choose all that apply): None applicable Discharge Plan Admission Admit Date/Time: 04/13/22 22:23 Primary Reason for Your Visit: Acute COPD exacerbation Attending Provider: Shaunna Lawrence Primary Care Provider: Kajal Ny Consulting Providers: Oscar Kyle Instructions Additional Instructions / Restrictions: Continue to wear your oxygen as prescribed. Increase oxygen to 4 L with ambulation Continue to use her incentive spirometer Follow-up with your primary care doctor within a week Discharge Orders/Prescriptions Prescriptions: New prednisone 10 mg tablet See Taper PO DAILY Qty: 30 0RF Taper: Prednisone Taper 40 mg WITH BREAKFAST for 3 Days and 0 Hour 30 mg WITH BREAKFAST for 3 Days and 0 Hour 20 mg WITH BREAKFAST for 3 Days and 0 Hour 10 mg WITH BREAKFAST for 3 Days and 0 Hour azithromycin 500 mg tablet 500 mg PO DAILY 3 Days Qty: 3 0RF Continued ibuprofen 200 mg tablet 200 mg PO Q6H PRN (Reason: Pain) lisinopril 10 mg tablet 10 mg PO DAILY Qty: 90 3RF pantoprazole 40 mg Tablet,Delayed Release (Dr/Ec) 40 mg PO DAILY varenicline 1 mg tablet 1 mg PO BID Label Comments: TAKE 1/2 (ONE-HALF) TABLET BY MOUTH TWICE DAILY FOR 2 WEEKS, THEN 1 TABLET TWICE DAILY cholecalciferol (vitamin D3) [Vitamin D3] 25 mcg (1,000 unit) Tablet 25 mcg PO DAILY (DME) Handicap Placard See Rx Instructions .ROUTE .MEDSUPPLY Qty: 1 0RF Rx Instructions: As directed, length of time 3 years Ventolin HFA 90 mcg/actuation HFA aerosol inhaler 2 puff INHALATION Q6H PRN (Reason: shortness of breath or wheezing) Qty: 8.5 4RF budesonide-formoterol [Symbicort] 80-4.5 mcg/actuation HFA aerosol inhaler 2 puff inhalation BID Qty: 10.2 3RF citalopram 40 mg tablet 40 mg PO QDAY Qty: 90 3RF amlodipine 10 mg tablet 10 mg PO DAILY Qty: 30 1RF Referrals / Follow Up: Kajal Ny MD [Primary Care Provider] - In 1 Week Disposition Disposition (needs filled in before D/C Order can be placed): Home, Self Care Charges/Coding Visit Charges OBSV E&M: 65192 Observation care discharge
== END 2022-04-15 12:35 | disposition home or self-care (01) ==
LOC: ED 22:05 → PCU 22:32
PROVIDERS: Admitting Provider Family Medicine; Emergency Provider Emergency Medicine; PCP Internal Medicine; Visit Provider Internal Medicine
DX: S09.90XA Unspecified injury of head, initial encounter (principal); J44.1 Chronic obstructive pulmonary disease with (acute) exacerbation; R77.8 Other specified abnormalities of plasma proteins; F41.9 Anxiety disorder, unspecified; W18.12XA Fall from or off toilet with subsequent striking against object, initial encounter; I10 Essential (primary) hypertension; M79.89 Other specified soft tissue disorders; F17.210 Nicotine dependence, cigarettes, uncomplicated; K21.9 Gastro-esophageal reflux disease without esophagitis; F32.A Depression, unspecified; Z79.899 Other long term (current) drug therapy; Z99.81 Dependence on supplemental oxygen; Y93.89 Activity, other specified; Y92.002 Bathroom of unspecified non-institutional (private) residence as the place of occurrence of the external cause
CPT/HCPCS: 36415; 70450; 71045; 71275; 78452; 80048; 83880; 84484; 85025; 85379; 87428; 87633; 92610; 93005; 93017; 93306; 94640; 96365; 96372; 96375; 96376; 99218; 99285; 99406; A9500; Q9957; A4216; C8929; G0378; J2785

== ENCOUNTER → 2022-05-26 | Outpatient (CLI) | payer MEDICARE, SELFPAY ==
--- NOTE | 2022-05-26 14:38 | PFTCOMP_ITS ---
COMPLETE PULMONARY FUNCTION TEST INTERPRETATION Brief HPI: Patient is a 66-year-old female, currently under the care of Dr. Ny, who presents to [facility] for complete pulmonary function tests secondary to diagnosis of COPD. Respiratory therapist reports good effort and reproducible results. Interpretation: Forced expiration spirometry shows a moderately severe large airways obstructive ventilatory defect with an FEV1 of 54% predicted. There is no significant bronchodilator response by strict ATS criteria. Spirograms are of good quality and plateau slowly, indicating slowly emptying areas of the lungs. The respiratory flow volume loop shows decreased expiratory flow rates at all lung volumes consistent with airway obstruction. Lung volumes by body plethysmography show an elevated total lung capacity at 6 L, 175% predicted. FRC and RV are elevated out of proportion. Lung volume measurements are consistent with hyperinflation and air-trapping. Diffusion capacity by carbon monoxide is decreased at 44% predicted. The airway resistance is elevated. Compared to previous pulmonary function tests from 03/16/2018, there has been significant worsening in FEV1 by 16%, DLCO by 28% and resultant worsening hyperinflation with air trapping. Impression: Irreversible moderately severe large airways obstructive ventilatory defect with a symmetric reduction diffusing capacity, resulting in worsening air trapping and hyperinflation. There has been worsening compared to 2018
== END | disposition home or self-care (01) ==
LOC: PSN 12:16
PROVIDERS: PCP Internal Medicine; Referring Provider Internal Medicine; Visit Provider Internal Medicine
DX: J44.9 Chronic obstructive pulmonary disease, unspecified (principal)
CPT/HCPCS: 94060; 94726; 94729

== ENCOUNTER → 2022-08-14 | Outpatient (CLI) | payer MEDICARE, SELFPAY ==
[2022-08-14 16:03] LABS: ALB/GLOB Ratio 1.2 RATIO (0.9-2.4); AST(SGOT) 16 U/L (15-37); Alanine Aminotransfer ALT/SGPT 19 U/L (13-56); Albumin, Serum 3.8 g/dL (3.2-5.0); Alkaline Phosphatase 60 U/L (45-117); Anion Gap 5 (5-15); BUN 12 mg/dL (7-18); BUN/Creat Ratio 18.2 RATIO (10-20); Calcium,Total 8.7 mg/dL (8.5-10.1); Chloride 107 mmol/L (98-107); Cholesterol 190 mg/dL (200); Creatinine, Serum 0.66 mg/dL (0.55-1.02); EST Glomerular Filtration Rate 94 mL/min (>60); Est Glom Filt Rate - Afr Amer 114 mL/min (>60); Globulin 3.1 g/dL (2.2-4.2); Glucose 81 mg/dL (74-106); High Density Lipoprotein 50 mg/dL; Potassium 4.1 mmol/L (3.5-5.1); Protein, Total 6.9 g/dL (6.4-8.2); Sodium Level 140 mmol/L (136-145); Triglycerides 125 mg/dL; Very Low Density Lipoprotein 25 mg/dL (5-40)
== END | disposition home or self-care (01) ==
LOC: BIMLAB 13:28
PROVIDERS: PCP Internal Medicine; Referring Provider Internal Medicine; Visit Provider Internal Medicine
DX: I10 Essential (primary) hypertension (principal)
CPT/HCPCS: 36415; 80053; 80061

== ENCOUNTER → 2023-04-08 | Outpatient (CLI) | payer MEDICARE, SELFPAY ==
[2023-04-08 16:34] LABS: Absolute Lymphocyte Count 2.66 X10^3/uL (0.83-4.51); Absolute Neutrophil Count 8.3 X10^3/uL (2.0-7.7); Basophil# 0.12 X10^3/uL; Basophil% 0.9 % (0-1); Eosinophil# 0.52 X10^3/uL; Eosinophils% 3.9 % (0-5); Hematocrit 38.8 % (37-47); Hemoglobin 12.5 g/dL (12.0-15.0); Lymphocyte # 2.66 X10^3/ul (0.83-4.51); Mean Corp Hgb Conc 32.2 g/dL (32-36); Mean Corpuscular Hgb 30.3 pg (27.0-32.0); Mean Corpuscular Volume 94.2 fL (81-99); Mean Platelet Vol. 9.7 fl (6.2-12.0); Monocyte# 1.66 X10^3/uL; Monocyte% 12.5 % (0-10); NRBC Flagged by Analyzer 0 % (0-5); Neutrophil # 8.32 X10^3/uL (2.7-7.7); Neutrophil % 62.3 % (47-70); POSITIVE DIFFERENTIAL YES; Platelet Count 356 K/mm3 (150-450); RBC Distribution Width CV 13.4 % (11.6-14.6); RBC Distribution Width SD 46.1 fl (35.1-43.9); Red Blood Count 4.12 M/mm3 (4.2-5.4); White Blood Count 13.3 K/mm3 (4.4-11.0)
[2023-04-08 16:36] LABS: Differential Indicated SCAN CRITERIA MET
[2023-04-08 16:45] LABS: ALB/GLOB Ratio 0.9 RATIO (0.9-2.4); AST(SGOT) 12 U/L (15-37); Alanine Aminotransfer ALT/SGPT 19 U/L (13-56); Albumin, Serum 3.5 g/dL (3.2-5.0); Alkaline Phosphatase 71 U/L (45-117); Anion Gap 3 (5-15); BUN 15 mg/dL (7-18); BUN/Creat Ratio 20.2 RATIO (10-20); Calcium,Total 8.5 mg/dL (8.5-10.1); Chloride 109 mmol/L (98-107); Creatinine, Serum 0.74 mg/dL (0.55-1.02); EST Glomerular Filtration Rate 82 mL/min (>60); Est Glom Filt Rate - Afr Amer 100 mL/min (>60); Globulin 3.7 g/dL (2.2-4.2); Glucose 156 mg/dL (74-106); Protein, Total 7.2 g/dL (6.4-8.2); Sodium Level 141 mmol/L (136-145)
[2023-04-09 13:23] LABS: Pathologist Review Reviewed
[2023-04-09 17:03] LABS: Hemoglobin A1c 6.1 % (3.8-5.6)
== END | disposition home or self-care (01) ==
LOC: BIMLAB 15:24
PROVIDERS: PCP Internal Medicine; Referring Provider Internal Medicine; Visit Provider Internal Medicine
DX: J45.909 Unspecified asthma, uncomplicated (principal); R73.9 Hyperglycemia, unspecified; I10 Essential (primary) hypertension
CPT/HCPCS: 36415; 80053; 83036; 85025

== ENCOUNTER → 2023-08-09 | Outpatient (CLI) | payer MEDICARE, SELFPAY ==
[2023-08-09 15:45] LABS: Absolute Lymphocyte Count 2.09 X10^3/uL (0.83-4.51); Basophil# 0.15 X10^3/uL; Basophil% 1.4 % (0-1); Eosinophil# 0.32 X10^3/uL; Hematocrit 39.5 % (37-47); Hemoglobin 12.8 g/dL (12.0-15.0); Lymphocyte # 2.09 X10^3/ul (0.83-4.51); Lymphocyte % 19.6 % (19-41); Mean Corp Hgb Conc 32.4 g/dL (32-36); Mean Corpuscular Volume 92.5 fL (81-99); Mean Platelet Vol. 9.4 fl (6.2-12.0); Monocyte# 1.05 X10^3/uL; Monocyte% 9.9 % (0-10); NRBC Flagged by Analyzer 0 % (0-5); Neutrophil # 6.98 X10^3/uL (2.7-7.7); Neutrophil % 65.6 % (47-70); Platelet Count 387 K/mm3 (150-450); RBC Distribution Width CV 13.4 % (11.6-14.6); RBC Distribution Width SD 45.5 fl (35.1-43.9); Red Blood Count 4.27 M/mm3 (4.2-5.4); White Blood Count 10.6 K/mm3 (4.4-11.0)
[2023-08-09 16:12] LABS: Hemoglobin A1c 6.1 % (3.8-5.6)
[2023-08-09 16:19] LABS: AST(SGOT) 16 U/L (15-37); Alanine Aminotransfer ALT/SGPT 17 U/L (13-56); Albumin, Serum 3.8 g/dL (3.2-5.0); Alkaline Phosphatase 70 U/L (45-117); Anion Gap 7 (5-15); BUN 12 mg/dL (7-18); BUN/Creat Ratio 16.9 RATIO (10-20); Calcium,Total 8.4 mg/dL (8.5-10.1); Chloride 106 mmol/L (98-107); Cholesterol 206 mg/dL (200); Creatinine, Serum 0.71 mg/dL (0.55-1.02); EST Glomerular Filtration Rate 86 mL/min (>60); Est Glom Filt Rate - Afr Amer 105 mL/min (>60); Globulin 3.7 g/dL (2.2-4.2); Glucose 99 mg/dL (74-106); High Density Lipoprotein 42 mg/dL; Potassium 3.8 mmol/L (3.5-5.1); Protein, Total 7.5 g/dL (6.4-8.2); Sodium Level 138 mmol/L (136-145); Triglycerides 128 mg/dL; Very Low Density Lipoprotein 26 mg/dL (5-40)
== END | disposition home or self-care (01) ==
LOC: BIMLAB 14:36
PROVIDERS: PCP Internal Medicine; Referring Provider Internal Medicine; Visit Provider Internal Medicine
DX: I10 Essential (primary) hypertension (principal); R73.03 Prediabetes; F32.9 Major depressive disorder, single episode, unspecified; F41.9 Anxiety disorder, unspecified
CPT/HCPCS: 36415; 80053; 80061; 83036; 85025

== ENCOUNTER → 2024-02-09 | Outpatient (CLI) | payer MEDICARE, SELFPAY ==
[2024-02-09 18:09] LABS: Anion Gap 7 (5-15); BUN 15 mg/dL (7-18); BUN/Creat Ratio 21.6 RATIO (10-20); Calcium,Total 8.2 mg/dL (8.5-10.1); Chloride 108 mmol/L (98-107); EST Glomerular Filtration Rate 89 mL/min (>60); Est Glom Filt Rate - Afr Amer 107 mL/min (>60); Glucose 108 mg/dL (74-106); Potassium 3.9 mmol/L (3.5-5.1); Sodium Level 141 mmol/L (136-145)
[2024-02-11 23:21] LABS: Vitamin D,25 Hydroxy 20.5 ng/mL
== END | disposition home or self-care (01) ==
LOC: BIMLAB 15:52
PROVIDERS: PCP Internal Medicine; Referring Provider Internal Medicine; Visit Provider Internal Medicine
DX: I10 Essential (primary) hypertension (principal); E83.51 Hypocalcemia
CPT/HCPCS: 36415; 80048; 82306

== ENCOUNTER → 2024-07-05 | Outpatient (CLI) | payer MEDICARE, SELFPAY ==
[2024-07-05 16:53] LABS: Absolute Lymphocyte Count 1.96 X10^3/uL (0.83-4.51); Absolute Neutrophil Count 6.6 X10^3/uL (2.0-7.7); Basophil# 0.11 X10^3/uL; Eosinophil# 0.42 X10^3/uL; Eosinophils% 3.9 % (0-5); Hemoglobin 11.8 g/dL (12.0-15.0); Lymphocyte # 1.96 X10^3/ul (0.83-4.51); Lymphocyte % 18.4 % (19-41); Mean Corp Hgb Conc 33.7 g/dL (32-36); Mean Corpuscular Hgb 31.2 pg (27.0-32.0); Mean Corpuscular Volume 92.6 fL (81-99); Mean Platelet Vol. 9.5 fl (6.2-12.0); Monocyte# 1.47 X10^3/uL; Monocyte% 13.8 % (0-10); NRBC Flagged by Analyzer 0 % (0-5); Neutrophil # 6.63 X10^3/uL (2.7-7.7); Neutrophil % 62.3 % (47-70); Platelet Count 328 K/mm3 (150-450); RBC Distribution Width CV 13.9 % (11.6-14.6); RBC Distribution Width SD 47.1 fl (35.1-43.9); Red Blood Count 3.78 M/mm3 (4.2-5.4); White Blood Count 10.7 K/mm3 (4.4-11.0)
[2024-07-05 18:10] LABS: ALB/GLOB Ratio 1.5 RATIO (0.9-2.4); AST(SGOT) 140 U/L (<=31); Alanine Aminotransfer ALT/SGPT 211 U/L (<=34); Albumin, Serum 4.4 g/dL (3.4-4.8); Alkaline Phosphatase 62 U/L (35-104); Anion Gap 13 (5-15); BUN 8 mg/dL (4-19); BUN/Creat Ratio 12.4 RATIO (10-20); Calcium,Total 8.7 mg/dL (7.6-11.0); Carbon Dioxide 26.5 mmol/L (21.0-32.0); Chloride 101 mmol/L (98-108); Cholesterol 194 mg/dL (<=200); Creatinine, Serum 0.64 mg/dL (0.70-1.20); EST Glomerular Filtration Rate 95 (>60); Globulin 2.9 g/dL (2.2-4.2); Glucose 96 mg/dL (70-99); High Density Lipoprotein 48 mg/dL; Low Density Lipoprotein Calc. 122 mg/dL; Potassium 3.8 mmol/L (3.3-5.1); Protein, Total 7.3 g/dL (5.9-8.4); Sodium Level 141 mmol/L (133-145); Total Bilirubin 0.25 mg/dL (0.00-1.30); Triglycerides 124 mg/dL; Very Low Density Lipoprotein 25 mg/dL (5-40); cholesterol:hdl ratio screen 4.08
== END | disposition home or self-care (01) ==
LOC: BIMLAB 15:47
PROVIDERS: PCP Internal Medicine; Referring Provider Internal Medicine; Visit Provider Internal Medicine
DX: E11.9 Type 2 diabetes mellitus without complications (principal); I10 Essential (primary) hypertension
CPT/HCPCS: 36415; 80053; 80061; 85025

== ENCOUNTER → 2024-10-12 | Outpatient (CLI) | payer MEDICARE, SELFPAY ==
[2024-10-12 16:53] LABS: Absolute Lymphocyte Count 2.23 X10^3/uL (0.83-4.51); Absolute Neutrophil Count 7.6 X10^3/uL (2.0-7.7); Basophil# 0.13 X10^3/uL; Basophil% 1.1 % (0-1); Eosinophil# 0.51 X10^3/uL; Eosinophils% 4.3 % (0-5); Hematocrit 39.8 % (37-47); Hemoglobin 13.4 g/dL (12.0-15.0); Lymphocyte # 2.23 X10^3/ul (0.83-4.51); Lymphocyte % 18.7 % (19-41); Mean Corp Hgb Conc 33.7 g/dL (32-36); Mean Corpuscular Hgb 30.9 pg (27.0-32.0); Mean Corpuscular Volume 91.7 fL (81-99); Mean Platelet Vol. 9.5 fl (6.2-12.0); Monocyte# 1.42 X10^3/uL; Monocyte% 11.9 % (0-10); NRBC Flagged by Analyzer 0 % (0-5); Neutrophil # 7.59 X10^3/uL (2.7-7.7); Neutrophil % 63.7 % (47-70); Platelet Count 330 K/mm3 (150-450); RBC Distribution Width CV 13.2 % (11.6-14.6); RBC Distribution Width SD 44.5 fl (35.1-43.9); Red Blood Count 4.34 M/mm3 (4.2-5.4); White Blood Count 11.9 K/mm3 (4.4-11.0)
[2024-10-12 17:01] LABS: ALB/GLOB Ratio 1.4 RATIO (0.9-2.4); AST(SGOT) 27 U/L (<=31); Alanine Aminotransfer ALT/SGPT 25 U/L (<=34); Albumin, Serum 4.3 g/dL (3.4-4.8); Alkaline Phosphatase 59 U/L (35-104); Anion Gap 13 (5-15); BUN 11 mg/dL (4-19); Calcium,Total 8.9 mg/dL (7.6-11.0); Carbon Dioxide 24.9 mmol/L (21.0-32.0); Chloride 100 mmol/L (98-108); Creatinine, Serum 0.84 mg/dL (0.70-1.20); EST Glomerular Filtration Rate 74 (>60); Glucose 106 mg/dL (70-99); Potassium 4.2 mmol/L (3.3-5.1); Protein, Total 7.3 g/dL (5.9-8.4); Sodium Level 138 mmol/L (133-145); Total Bilirubin 0.32 mg/dL (0.00-1.30)
== END | disposition home or self-care (01) ==
LOC: BIMLAB 15:24
PROVIDERS: PCP Internal Medicine; Referring Provider Internal Medicine; Visit Provider Internal Medicine
DX: R74.8 Abnormal levels of other serum enzymes (principal); K21.9 Gastro-esophageal reflux disease without esophagitis
CPT/HCPCS: 36415; 80053; 85025